=== PATIENT | female | born 1950 | race Caucasian/White ===

== ENCOUNTER 2018-07-07 22:01 | Emergency (ER) | payer OTHER ==
[2018-07-07] MEDS ORDERED: cloNIDine HCL 0.1 MG TAB PO ONE (22:30)
[2018-07-07 23:02] LABS: Basophils # (auto) 0 uL; Basophils % (auto) 0.3 % (0.0-2.0); Eosinophils # (auto) 0.1 uL; Eosinophils % (auto) 0.6 % (0.0-7.0); Hematocrit 41.4 % (36.0-46.0); Hemoglobin 13.9 g/dL (12.2-16.2); Lymphocytes # (auto) 2.1 uL; Lymphocytes % (auto) 16.9 % (10.0-50.0); Mean Corpuscular Hgb Conc. 33.7 g/dL (32.0-36.0); Monocytes # (auto) 0.6 uL; Monocytes % (auto) 4.9 % (0.0-12.0); Neutrophils # (auto) 9.5 uL; Neutrophils % (auto) 77.3 % (37.0-80.0); Platelet Count (auto) 246 10^3/uL (140-450); Red Cell Distribution Width 12.7 % (11.8-14.3); White Blood Cell 12.2 10^3/uL (4.4-10.8)
[2018-07-07 23:22] LABS: Albumin 3.9 g/dL (3.4-5.0); Calcium 8.3 mg/dL (8.5-10.1); Magnesium 2.4 mg/dL (1.6-2.6); Potassium 4.4 mmol/L (3.5-5.1)
[2018-07-07 23:27] LABS: BUN/Creatinine Ratio 16.9; Bilirubin, Total 0.7 mg/dL (0.2-1.0); Total Protein 7.2 g/dL (6.4-8.2)
[2018-07-07 23:28] LABS: INR 0.94 (0.9-1.15); Partial Thromboplastin Time 26.3 sec (23.78-33.04); Prothrombin Time 10.1 sec (9.27-12.13)
[2018-07-08] MEDS ORDERED: LORazepam 0.5 MG TAB PO ONE (02:00)
[2018-07-08] MEDS ORDERED: cloNIDine HCL 0.1 MG TAB PO ONE ×2 (05:15)
[2018-07-08] MEDS: LORazepam 0.5 MG TAB PO ONE ×2 (10:11→10:16)
[2018-07-08 11:43] VITALS: BP 106/73
== END 2018-07-08 12:01 | disposition short-term general hospital (02) ==
LOC: ER 22:03
DX: R07.89 Other chest pain (principal); R79.89 Other specified abnormal findings of blood chemistry; D72.829 Elevated white blood cell count, unspecified; I10 Essential (primary) hypertension; F41.9 Anxiety disorder, unspecified; R73.9 Hyperglycemia, unspecified; E78.5 Hyperlipidemia, unspecified; Z86.73 Personal history of transient ischemic attack (TIA), and cerebral infarction without residual deficits
CPT/HCPCS: 36415; 71046; 80053; 83735; 83880; 84443; 84484; 85025; 85379; 85610; 85730; 93005

== ENCOUNTER 2018-08-17 20:54 | Emergency (ER) | payer OTHER ==
[~2018-08-17] VITALS: Ht 162.6 cm; Wt 59.0 kg
[2018-08-17] MEDS ORDERED: cloNIDine HCL 0.1 MG TAB PO ONE (21:45)
[2018-08-17 21:54] LABS: Basophils # (auto) 0 uL; Basophils % (auto) 0.2 % (0.0-2.0); Eosinophils # (auto) 0.1 uL; Eosinophils % (auto) 0.8 % (0.0-7.0); Hematocrit 38.7 % (36.0-46.0); Hemoglobin 12.8 g/dL (12.2-16.2); Lymphocytes # (auto) 1.8 uL; Lymphocytes % (auto) 23.1 % (10.0-50.0); Mean Corpuscular Hemoglobin 30.7 pg (28.0-32.0); Mean Corpuscular Hgb Conc. 33.2 g/dL (32.0-36.0); Mean Corpuscular Volume 92.6 fL (80.0-100.0); Monocytes # (auto) 0.6 uL; Monocytes % (auto) 7.4 % (0.0-12.0); Neutrophils # (auto) 5.2 uL; Neutrophils % (auto) 68.5 % (37.0-80.0); Nucleated Red Blood Cells % 0.1 %; Platelet Count (auto) 178 10^3/uL (140-450); Red Blood Cells 4.18 10^6/uL (4.0-5.20); Red Cell Distribution Width 14.3 % (11.8-14.3); White Blood Cell 7.6 10^3/uL (4.4-10.8)
[2018-08-17 22:14] LABS: Albumin 3.8 g/dL (3.4-5.0); BUN/Creatinine Ratio 21.1; Calcium 8.4 mg/dL (8.5-10.1); Magnesium 2.3 mg/dL (1.6-2.6); Potassium 4.2 mmol/L (3.5-5.1)
[2018-08-17 22:19] LABS: Bilirubin, Total 0.5 mg/dL (0.2-1.0); Total Protein 7.4 g/dL (6.4-8.2)
[2018-08-17 22:20] LABS: INR 0.92 (0.9-1.15); Partial Thromboplastin Time 25.5 sec (23.78-33.04); Prothrombin Time 9.9 sec (9.27-12.13)
[2018-08-18] MEDS ORDERED: HYDROcodone-ACET 10/325MG TAB PO ONE ×2
[2018-08-18 01:33] VITALS: BP 166/88
== END 2018-08-18 02:00 | disposition left against medical advice (07) ==
LOC: ER 20:56
DX: I10 Essential (primary) hypertension (principal); Z53.21 Procedure and treatment not carried out due to patient leaving prior to being seen by health care provider
CPT/HCPCS: 36415; 71046; 80053; 83735; 83880; 84484; 85025; 85379; 85610; 85730; 93005

== ENCOUNTER 2021-01-18 12:47 | Emergency (ER) | payer OTHER ==
[~2021-01-18] VITALS: Ht 154.9 cm; Wt 59.0 kg
[2021-01-18] MEDS ORDERED: LIDOCAINE 1% HCL (LOCAL ANESTH.) INJ 20ML MDV ONE (14:31)
[2021-01-18] MEDS ORDERED: ACETAMINOPHEN 500 MG TAB PO ONE ×2 (14:32→14:45)
[2021-01-18] MEDS ORDERED: LIDOCAINE 1% HCL (LOCAL ANESTH.) INJ 20ML MDV ID ONE (14:45)
[2021-01-18 15:08] VITALS: BP 110/70
== END 2021-01-18 15:08 | disposition home or self-care (01) ==
LOC: EDSEX 12:47 → ER 12:47 → EDBD 12:47 → ER 15:08
DX: S01.01XA Laceration without foreign body of scalp, initial encounter (principal); I10 Essential (primary) hypertension; I25.10 Atherosclerotic heart disease of native coronary artery without angina pectoris; E78.5 Hyperlipidemia, unspecified; W01.198A Fall on same level from slipping, tripping and stumbling with subsequent striking against other object, initial encounter; Y93.89 Activity, other specified; Y92.89 Other specified places as the place of occurrence of the external cause; Y99.8 Other external cause status
CPT/HCPCS: 12002; 70450; 99284; J2001

== ENCOUNTER 2021-05-26 04:07 | Inpatient (IN) | payer OTHER ==
[~2021-05-26] VITALS: Ht 162.6 cm; Wt 56.9 kg
[2021-05-26] MEDS ORDERED: PANTOPRAZOLE 40 MG/10 ML VIAL INJ IV ONE (05:30)
[2021-05-26] MEDS ORDERED: SODIUM CHLORIDE 0.9% 1,000 ML IV ONE ×2 (05:30→07:45)
[2021-05-26] MEDS ORDERED: ONDANSETRON HCL 4 MG/2 ML VIAL IV ONE (05:30)
[2021-05-26 05:48] LABS: Basophils # (auto) 0 10 ^3/uL (0-0.2); Basophils % (auto) 0.2 % (0.0-2.0); Eosinophils # (auto) 0 10 ^3/uL (0-0.8); Hematocrit 37.7 % (36.0-46.0); Hemoglobin 12.6 g/dL (12.2-16.2); Lymphocytes % (auto) 9.7 % (10.0-50.0); Mean Corpuscular Hemoglobin 33.9 pg (28.0-32.0); Mean Corpuscular Hgb Conc. 33.4 g/dL (32.0-36.0); Mean Corpuscular Volume 101.4 fL (80.0-100.0); Monocytes # (auto) 0.3 10 ^3/uL (0-1.3); Neutrophils # (auto) 9.1 10 ^3/uL (1.6-8.6); Neutrophils % (auto) 87.1 % (37.0-80.0); Red Blood Cells 3.72 10^6/uL (4.0-5.20); Red Cell Distribution Width 14.9 % (11.8-14.3); White Blood Cell 10.4 10^3/uL (4.4-10.8)
[2021-05-26 06:01] LABS: Albumin 3.4 g/dL (3.4-5.0); Calcium 8.6 mg/dL (8.5-10.1); Magnesium 2.6 mg/dL (1.6-2.6); Potassium 4.2 mmol/L (3.5-5.1)
[2021-05-26 06:03] LABS: INR 0.96 (0.9-1.15); Partial Thromboplastin Time 22.5 sec (23.6-33.0)
[2021-05-26 06:06] LABS: BUN/Creatinine Ratio 30.9; Bilirubin, Total 0.6 mg/dL (0.2-1.0)
[2021-05-26] MEDS ORDERED: MORPHINE SULFATE 4 MG/ML SYR/VIAL IV ONE (07:45)
[2021-05-26] MEDS ORDERED: SODIUM CHLORIDE 0.9% 500 ML IVB ONE (07:45)
[2021-05-26] MEDS ORDERED: METOCLOPRAMIDE HCL 5MG/ml INJ 2ml VIAL IV ONE (07:45)
[2021-05-26] MEDS ORDERED: IOHEXOL 300 MG/ML 100ML BOTTLE IJ ONE (08:01)
[2021-05-26] MEDS ORDERED: PANTOPRAZOLE 40mg/50ML NS AE 50 ML IV ONE (10:45)
[2021-05-26] MEDS ORDERED: NITROGLYCERIN 0.4 MG SL TAB SL PRN (12:45)
[2021-05-26] MEDS ORDERED: ONDANSETRON HCL 4 MG/2 ML VIAL IV PRN (12:45)
[2021-05-26] MEDS ORDERED: MORPHINE SULFATE INJECTION 2 MG/ML SYRG IV PRN (12:45)
[2021-05-26] MEDS: HYDROmorphone HCL 2 MG/ML VL IV PRN (13:40)
[2021-05-26] MEDS: SODIUM CHLORIDE 0.9% 1,000 ML IV SCH (14:06)
[2021-05-26] MEDS: PANTOPRAZOLE 40mg/50ML NS AE 50 ML IV SCH ×3 (15:39→23:06)
[2021-05-26 19:14] LABS: Hematocrit 29.2 % (36.0-46.0); Hemoglobin 9.7 g/dL (12.2-16.2)
[2021-05-26 20:00] VITALS: BP 139/59
[2021-05-26 22:00] VITALS: BP 136/69
[2021-05-27] MEDS ORDERED: ATO40T PO (00:44)
[2021-05-27] MEDS: SODIUM CHLORIDE 0.9% 1,000 ML IV SCH ×2 (03:41→15:25)
[2021-05-27] MEDS: PANTOPRAZOLE 40mg/50ML NS AE 50 ML IV SCH ×4 (04:47→18:45)
[2021-05-27 05:00] VITALS: BP 107/63
[2021-05-27 08:00] VITALS: BP 119/74
[2021-05-27] MEDS: HYDROmorphone HCL 2 MG/ML VL IV PRN ×2 (09:37→20:38)
[2021-05-27 12:00] VITALS: BP 125/70
[2021-05-27 16:00] VITALS: BP 125/82
[2021-05-27 22:00] VITALS: BP 141/77
[2021-05-27] MEDS ORDERED: IRBE300T43 PO (22:08)
[2021-05-28] MEDS: SODIUM CHLORIDE 0.9% 1,000 ML IV SCH ×2 (04:45→21:17)
[2021-05-28 05:00] VITALS: BP 129/78
[2021-05-28 06:42] LABS: Basophils # (auto) 0 10 ^3/uL (0-0.2); Eosinophils # (auto) 0 10 ^3/uL (0-0.8); Lymphocytes # (auto) 1.4 10 ^3/uL (0.4-5.4); Nucleated Red Blood Cells % 0.1 %; White Blood Cell 4.3 10^3/uL (4.4-10.8)
[2021-05-28 06:45] LABS: Basophils % (auto) 0.4 % (0.0-2.0); Eosinophils % (auto) 0.9 % (0.0-7.0); Hematocrit 30.1 % (36.0-46.0); Hemoglobin 10.2 g/dL (12.2-16.2); Lymphocytes % (auto) 31.4 % (10.0-50.0); Mean Corpuscular Hemoglobin 34.7 pg (28.0-32.0); Mean Corpuscular Hgb Conc. 33.8 g/dL (32.0-36.0); Mean Corpuscular Volume 102.7 fL (80.0-100.0); Monocytes # (auto) 0.3 10 ^3/uL (0-1.3); Monocytes % (auto) 7.8 % (0.0-12.0); Neutrophils # (auto) 2.6 10 ^3/uL (1.6-8.6); Neutrophils % (auto) 59.5 % (37.0-80.0); Red Blood Cells 2.93 10^6/uL (4.0-5.20)
[2021-05-28 09:00] VITALS: BP 136/86
[2021-05-28] MEDS ORDERED: PANTOPRAZOLE 40 MG TAB PO SCH (10:00)
[2021-05-28] MEDS: HYDROmorphone HCL 2 MG/ML VL IV PRN (10:19)
[2021-05-28 13:00] VITALS: BP 154/93
[2021-05-28 17:00] VITALS: BP 138/69
[2021-05-28 22:00] VITALS: BP 121/77
[2021-05-29 06:42] VITALS: BP 147/85
[2021-05-29 09:00] VITALS: BP 152/86
[2021-05-29] MEDS ORDERED: diphenhdrAMINE HCL 50 MG/1 ML VL ONE (09:16)
[2021-05-29] MEDS ORDERED: fentaNYL CITRATE 100 MCG/2 ML VL ONE (09:16)
[2021-05-29] MEDS: MIDAZOLAM HCL 5 MG/ML-1ML VIAL ONE ×2 (10:07→10:12)
[2021-05-29] MEDS: SODIUM CHLORIDE 0.9% 1,000 ML IV SCH (12:31)
[2021-05-29 13:00] VITALS: BP 148/89
[2021-05-29] MEDS: HYDROmorphone HCL 2 MG/ML VL IV PRN (13:27)
[2021-05-29 15:09] VITALS: BP 132/83
[2021-05-29] MEDS ORDERED: SUCRALFATE 1 GM/10 ML ORAL SUSP PO SCH (17:00)
[2021-05-29] MEDS ORDERED: PANTOPRAZOLE 40 MG TAB PO SCH (22:00)
== END 2021-05-29 15:50 | disposition home or self-care (01) | DRG 382 ==
LOC: EDBD 04:07 → ER 04:07 → TELE 12:38 → TELE-WESTW 21:49
PROVIDERS: ADMIT Internal Medicine; ATTEND Internal Medicine
PROC: 0DB68ZX Excision of Stomach, Via Natural or Artificial Opening Endoscopic, Diagnostic (ICD-10-PCS; principal; 2021-05-29 10:05)
DX: K22.11 Ulcer of esophagus with bleeding (principal); K29.81 Duodenitis with bleeding; K44.9 Diaphragmatic hernia without obstruction or gangrene; K29.71 Gastritis, unspecified, with bleeding; K76.0 Fatty (change of) liver, not elsewhere classified; D75.89 Other specified diseases of blood and blood-forming organs; I10 Essential (primary) hypertension; I25.10 Atherosclerotic heart disease of native coronary artery without angina pectoris; Z20.822 Contact with and (suspected) exposure to COVID-19; Z90.710 Acquired absence of both cervix and uterus; E78.5 Hyperlipidemia, unspecified
CPT/HCPCS: 36415; 43239; 71046; 74177; 80053; 83690; 83735; 83880; 84484; 85014; 85018; 85025; 85610; 85730; 86850; 86900; 86901; 87426; 93005; 96361; 96374; 96375; C9113; G0378; J2250; J2405

== ENCOUNTER 2021-08-03 12:21 | Emergency (ER) | payer OTHER ==
[~2021-08-03] VITALS: Ht 162.6 cm; Wt 47.6 kg
[~2021-08-03 12:21] MED LIST: ATO40T PO; IRBE300T43 PO
[2021-08-03] MEDS ORDERED: FAMOTIDINE (10MG/ML) 2ML VL IV ONE (12:45)
[2021-08-03] MEDS ORDERED: MORPHINE SULFATE 4 MG/ML SYR/VIAL IV ONE (12:45)
[2021-08-03] MEDS ORDERED: PANTOPRAZOLE 40 MG/10 ML VIAL INJ IV ONE (12:45)
[2021-08-03] MEDS ORDERED: ONDANSETRON HCL 4 MG/2 ML VIAL IV ONE (12:45)
[2021-08-03] MEDS ORDERED: SODIUM CHLORIDE 0.9% 1,000 ML IV ONE (12:45)
[2021-08-03 13:46] LABS: Basophils # (auto) 0.2 10 ^3/uL (0-0.2); Basophils % (auto) 1.8 % (0.0-2.0); Eosinophils # (auto) 0.1 10 ^3/uL (0-0.8); Eosinophils % (auto) 0.8 % (0.0-7.0); Hematocrit 38.2 % (36.0-46.0); Hemoglobin 12.5 g/dL (12.2-16.2); Lymphocytes # (auto) 0.8 10 ^3/uL (0.4-5.4); Lymphocytes % (auto) 8.2 % (10.0-50.0); Mean Corpuscular Hemoglobin 28.9 pg (28.0-32.0); Mean Corpuscular Hgb Conc. 32.6 g/dL (32.0-36.0); Mean Corpuscular Volume 88.5 fL (80.0-100.0); Monocytes # (auto) 0.5 10 ^3/uL (0-1.3); Monocytes % (auto) 4.8 % (0.0-12.0); Neutrophils # (auto) 8.5 10 ^3/uL (1.6-8.6); Neutrophils % (auto) 84.4 % (37.0-80.0); Red Blood Cells 4.32 10^6/uL (4.0-5.20); Red Cell Distribution Width 25.9 % (11.8-14.3); White Blood Cell 10.1 10^3/uL (4.4-10.8)
[2021-08-03 13:53] LABS: Albumin 3.3 g/dL (3.4-5.0); BUN/Creatinine Ratio 19.9; Calcium 8.9 mg/dL (8.5-10.1); Magnesium 2.6 mg/dL (1.6-2.6); Potassium 4.4 mmol/L (3.5-5.1)
[2021-08-03 13:54] LABS: Lactic Acid w/Reflex 2.3 mmol/L (0.4-2.0)
[2021-08-03 13:56] LABS: Bilirubin, Total 0.8 mg/dL (0.2-1.0)
[2021-08-03] MEDS ORDERED: HYDROcodone-ACET 5/325MG TAB PO ONE ×2 (15:15→19:45)
[2021-08-03] MEDS ORDERED: SODIUM CHLORIDE 0.9% 500 ML IV ONE ×2 (15:30→16:45)
[2021-08-03 18:49] LABS: Urine Bacteria NONE SEEN /hpf (None Seen); Urine Blood Negative /uL (Negative); Urine Hyaline Cast MOD /lpf (0 - 2); Urine Specific Gravity 1.017 (1.001-1.035); Urine WBC 1 /hpf (0 - 5)
[2021-08-03 21:30] VITALS: BP 103/51
== END 2021-08-03 21:43 | disposition home or self-care (01) ==
LOC: ER 12:21 → EDBD 12:21 → ER 21:43
DX: K20.90 Esophagitis, unspecified without bleeding (principal); N17.9 Acute kidney failure, unspecified; I10 Essential (primary) hypertension; Z90.49 Acquired absence of other specified parts of digestive tract; Z90.710 Acquired absence of both cervix and uterus
CPT/HCPCS: 36415; 74176; 80053; 81001; 83605; 83735; 85025; 93005; 96361; 96374; 96375; 99285; C9113; J2270; J2405; J3490; J7030

== ENCOUNTER 2022-09-05 16:09 | Emergency (ER) | payer OTHER ==
[~2022-09-05] VITALS: Ht 157.5 cm; Wt 52.3 kg
[2022-09-05] MEDS ORDERED: SODIUM CHLORIDE 0.9% 1,000 ML IV ONE ×3 (16:30→18:15)
[2022-09-05 17:22] LABS: Albumin 2.8 g/dL (3.4-5.0); BUN/Creatinine Ratio 27.7 (10.0-20.0); Calcium 8.6 mg/dL (8.5-10.1); Potassium 4.4 mmol/L (3.5-5.1)
[2022-09-05 17:24] LABS: Basophils # (auto) 0 10 ^3/uL (0-0.2); Basophils % (auto) 0.3 % (0.0-2.0); Bilirubin, Total 0.9 mg/dL (0.2-1.0); Eosinophils # (auto) 0 10 ^3/uL (0-0.8); Hematocrit 41.8 % (36.0-46.0); Hemoglobin 13.9 g/dL (12.2-16.2); Lymphocytes % (auto) 8.9 % (10.0-50.0); Mean Corpuscular Hemoglobin 34.5 pg (28.0-32.0); Mean Corpuscular Hgb Conc. 33.3 g/dL (32.0-36.0); Mean Corpuscular Volume 103.5 fL (80.0-100.0); Monocytes # (auto) 0.7 10 ^3/uL (0-1.3); Monocytes % (auto) 6.4 % (0.0-12.0); Neutrophils # (auto) 9.1 10 ^3/uL (1.6-8.6); Neutrophils % (auto) 84.4 % (37.0-80.0); Nucleated Red Blood Cells % 0.2 %; Red Blood Cells 4.04 10^6/uL (4.0-5.20); Red Cell Distribution Width 14.1 % (11.8-14.3); Total Protein 5.9 g/dL (6.4-8.2); White Blood Cell 10.7 10^3/uL (4.4-10.8)
[2022-09-05] MEDS ORDERED: PANTOPRAZOLE 40 MG/10 ML VIAL INJ IV ONE ×2 (18:00→18:15)
[2022-09-05] MEDS ORDERED: PANT40TA2 PO (18:23)
[2022-09-05] MEDS ORDERED: SUCR1SUS10 PO (18:23)
[2022-09-05 18:25] LABS: INR 0.94 (0.9-1.15); Partial Thromboplastin Time 23.4 sec (24.6-33.4)
[2022-09-05] MEDS ORDERED: SUCRALFATE 1 GM/10 ML ORAL SUSP PO ONE (19:30)
[2022-09-05] MEDS ORDERED: ACETAMINOPHEN 325 MG TAB PO SCH (19:30)
[2022-09-05 19:46] LABS: Eosinophils # (auto) 0 10 ^3/uL (0-0.8); Red Cell Distribution Width 14.1 % (11.8-14.3)
[2022-09-05 19:48] LABS: Basophils # (auto) 0 10 ^3/uL (0-0.2); Basophils % (auto) 0.2 % (0.0-2.0); Hematocrit 32.9 % (36.0-46.0); Lymphocytes % (auto) 12.1 % (10.0-50.0); Mean Corpuscular Hemoglobin 35.7 pg (28.0-32.0); Mean Corpuscular Hgb Conc. 33.5 g/dL (32.0-36.0); Mean Corpuscular Volume 106.6 fL (80.0-100.0); Monocytes # (auto) 0.7 10 ^3/uL (0-1.3); Monocytes % (auto) 8.1 % (0.0-12.0); Neutrophils # (auto) 6.5 10 ^3/uL (1.6-8.6); Neutrophils % (auto) 79.6 % (37.0-80.0); Nucleated Red Blood Cells % 0.1 %; Red Blood Cells 3.09 10^6/uL (4.0-5.20); White Blood Cell 8.2 10^3/uL (4.4-10.8)
[2022-09-05] MEDS ORDERED: SUCRALFATE 1 GM/10 ML ORAL SUSP PO SCH (22:00)
[2022-09-05 22:43] LABS: Basophils # (auto) 0 10 ^3/uL (0-0.2); Eosinophils # (auto) 0 10 ^3/uL (0-0.8); Hematocrit 33.2 % (36.0-46.0); Hemoglobin 11.1 g/dL (12.2-16.2); Monocytes # (auto) 0.7 10 ^3/uL (0-1.3); Monocytes % (auto) 8.3 % (0.0-12.0); Red Blood Cells 3.14 10^6/uL (4.0-5.20)
[2022-09-05 22:45] LABS: Basophils % (auto) 0.4 % (0.0-2.0); Lymphocytes # (auto) 1.5 10 ^3/uL (0.4-5.4); Lymphocytes % (auto) 17.3 % (10.0-50.0); Mean Corpuscular Hemoglobin 35.4 pg (28.0-32.0); Mean Corpuscular Hgb Conc. 33.5 g/dL (32.0-36.0); Mean Corpuscular Volume 105.8 fL (80.0-100.0); Neutrophils # (auto) 6.6 10 ^3/uL (1.6-8.6); Red Cell Distribution Width 14.1 % (11.8-14.3); White Blood Cell 8.9 10^3/uL (4.4-10.8)
[2022-09-06 00:15] VITALS: BP 170/90
== END 2022-09-06 00:32 | disposition home or self-care (01) ==
LOC: EDBD 16:09 → ER 16:09
DX: R07.89 Other chest pain (principal); K92.0 Hematemesis; R00.0 Tachycardia, unspecified; E78.5 Hyperlipidemia, unspecified; I10 Essential (primary) hypertension; Z90.49 Acquired absence of other specified parts of digestive tract; Z90.710 Acquired absence of both cervix and uterus; Z88.8 Allergy status to other drugs, medicaments and biological substances
CPT/HCPCS: 36415; 71045; 71250; 74176; 80053; 82271; 83605; 83735; 83880; 84484; 85025; 85610; 85730; 86850; 86900; 86901; 93005; 96361; 96374; 99285; C9113; J7030

== ENCOUNTER 2023-03-12 09:39 | Emergency (ER) | payer OTHER ==
[~2023-03-12] VITALS: Ht 165.1 cm; Wt 59.1 kg
[~2023-03-12 09:39] MED LIST changes: +PANT40TA2 PO; +SUCR1SUS26 PO
[2023-03-12 10:00] VITALS: PULSE 95; RESP 12; O2SAT 99
[2023-03-12 10:11] VITALS: TEMP 98
[2023-03-12 10:20] LABS: Basophils # (auto) 0 10 ^3/uL (0-0.2); Basophils % (auto) 0.3 % (0.0-2.0); Eosinophils # (auto) 0 10 ^3/uL (0-0.8); Hematocrit 45.5 % (36.0-46.0); Hemoglobin 14.8 g/dL (12.2-16.2); Lymphocytes # (auto) 1.1 10 ^3/uL (0.4-5.4); Lymphocytes % (auto) 8.9 % (10.0-50.0); Mean Corpuscular Hemoglobin 30.5 pg (28.0-32.0); Mean Corpuscular Hgb Conc. 32.6 g/dL (32.0-36.0); Mean Corpuscular Volume 93.6 fL (80.0-100.0); Monocytes # (auto) 0.4 10 ^3/uL (0-1.3); Monocytes % (auto) 3.2 % (0.0-12.0); Neutrophils % (auto) 87.6 % (37.0-80.0); Nucleated Red Blood Cells % 0.1 %; Red Blood Cells 4.86 10^6/uL (4.0-5.20); Red Cell Distribution Width 13.9 % (11.8-14.3); White Blood Cell 12.5 10^3/uL (4.4-10.8)
[2023-03-12 10:33] LABS: Alanine Aminotransferase 18 U/L (7-40); Albumin 4.2 g/dL (3.2-4.8); Alkaline Phosphatase 130 U/L (46-116); Anion Gap 12 (5-15); Aspartate Aminotransferase 24 U/L (13-40); BUN/Creatinine Ratio 12.3 (10.0-20.0); Blood Urea Nitrogen 10 mg/dL (9-23); Calcium 9.6 mg/dL (8.5-10.1); Carbon Dioxide 27 mmol/L (20-30); Chloride 101 mmol/L (98-107); Glucose 120 mg/dL (74-106); Potassium 3.8 mmol/L (3.5-5.1); Sodium 140 mmol/L (136-145)
[2023-03-12 10:34] LABS: Bilirubin, Total 0.9 mg/dL (0.2-1.0); Total Protein 6.7 g/dL (5.7-8.2)
[2023-03-12 10:59] LABS: Lipase 50 U/L (12-53)
[2023-03-12] MEDS ORDERED: MORPHINE SULFATE 4 MG/ML SYR/VIAL IV ONE (11:30)
[2023-03-12] MEDS ORDERED: SODIUM CHLORIDE 0.9% 1,000 ML IV ONE (11:30)
[2023-03-12] MEDS ORDERED: ONDANSETRON HCL 4 MG/2 ML VIAL IV ONE (11:30)
[2023-03-12 15:19] VITALS: BP 159/92; RESP 16; O2SAT 98
[2023-03-12 15:44] VITALS: PULSE 95
[2023-03-12] MEDS ORDERED: ZOFR4T PO (16:52)
== END 2023-03-12 16:08 | disposition home or self-care (01) ==
LOC: ER 09:39 → EDBD 09:39 → ER 15:50
DX: R10.13 Epigastric pain (principal); R11.2 Nausea with vomiting, unspecified; R19.7 Diarrhea, unspecified; I10 Essential (primary) hypertension; I25.10 Atherosclerotic heart disease of native coronary artery without angina pectoris; E78.5 Hyperlipidemia, unspecified; Z90.49 Acquired absence of other specified parts of digestive tract; Z90.710 Acquired absence of both cervix and uterus; Z90.89 Acquired absence of other organs; Z79.899 Other long term (current) drug therapy
CPT/HCPCS: 36415; 71045; 74177; 80053; 83690; 84484; 85025; 93005; 96361; 96374; 96375; 99285; J2270; J2405; J7030; Q9967

== ENCOUNTER 2023-04-16 23:40 | Emergency (ER) | payer OTHER ==
[~2023-04-16] VITALS: Ht 160 cm; Wt 54.4 kg
[~2023-04-16 23:40] MED LIST changes: +ZOFR4T PO
[2023-04-16 23:57] VITALS: BP 148/76; RESP 18; O2SAT 100
[2023-04-17 00:55] LABS: Basophils # (auto) 0 10 ^3/uL (0-0.2); Basophils % (auto) 0.4 % (0.0-2.0); Eosinophils # (auto) 0 10 ^3/uL (0-0.8); Hematocrit 46.3 % (36.0-46.0); Hemoglobin 15.2 g/dL (12.2-16.2); Lymphocytes # (auto) 1.7 10 ^3/uL (0.4-5.4); Lymphocytes % (auto) 13.9 % (10.0-50.0); Mean Corpuscular Hemoglobin 30.7 pg (28.0-32.0); Mean Corpuscular Hgb Conc. 32.8 g/dL (32.0-36.0); Mean Corpuscular Volume 93.5 fL (80.0-100.0); Monocytes # (auto) 0.5 10 ^3/uL (0-1.3); Monocytes % (auto) 4.2 % (0.0-12.0); Neutrophils # (auto) 9.8 10 ^3/uL (1.6-8.6); Neutrophils % (auto) 81.5 % (37.0-80.0); Red Blood Cells 4.95 10^6/uL (4.0-5.20); White Blood Cell 12.1 10^3/uL (4.4-10.8)
[2023-04-17 01:15] LABS: Alanine Aminotransferase 18 U/L (7-40); Albumin 4.3 g/dL (3.2-4.8); Alkaline Phosphatase 143 U/L (46-116); Anion Gap 16 (5-15); Aspartate Aminotransferase 27 U/L (13-40); BUN/Creatinine Ratio 8.8 (10.0-20.0); Blood Urea Nitrogen 7 mg/dL (9-23); Calcium 9.7 mg/dL (8.7-10.4); Carbon Dioxide 22 mmol/L (20-30); Chloride 100 mmol/L (98-107); Glucose 95 mg/dL (74-106); Lipase 51 U/L (12-53); Potassium 3.9 mmol/L (3.5-5.1); Sodium 138 mmol/L (136-145)
[2023-04-17 01:16] LABS: Bilirubin, Total 0.9 mg/dL (0.2-1.0); Total Protein 7.1 g/dL (5.7-8.2)
[2023-04-17 01:41] LABS: INR 0.94 (0.9-1.15); Prothrombin Time 9.9 sec (9.3-11.8)
[2023-04-17 02:08] VITALS: PULSE 119
== END 2023-04-17 01:52 | disposition left against medical advice (07) ==
LOC: EDBD 23:40 → ER 23:40
DX: K57.30 Diverticulosis of large intestine without perforation or abscess without bleeding (principal); R10.13 Epigastric pain; R11.2 Nausea with vomiting, unspecified; I10 Essential (primary) hypertension; I25.10 Atherosclerotic heart disease of native coronary artery without angina pectoris; K21.9 Gastro-esophageal reflux disease without esophagitis; E78.5 Hyperlipidemia, unspecified; Z98.890 Other specified postprocedural states; Z79.899 Other long term (current) drug therapy
CPT/HCPCS: 36415; 71045; 74176; 80053; 83690; 83735; 84484; 85025; 85610; 85730; 93005

== ENCOUNTER 2024-09-29 12:57 | Emergency (ER) | payer OTHER ==
[~2024-09-29] VITALS: Ht 162.6 cm; Wt 52.0 kg
[~2024-09-29 12:57] MED LIST changes: -ATO40T PO; +ATOR-507 PO
[2024-09-29 14:18] LABS: Basophils # (auto) 0 10 ^3/uL (0-0.2); Basophils % (auto) 0.4 % (0.0-2.0); Eosinophils # (auto) 0 10 ^3/uL (0-0.8); Eosinophils % (auto) 0.8 % (0.0-7.0); Hematocrit 43.7 % (36.0-46.0); Hemoglobin 14.4 g/dL (12.2-16.2); Lymphocytes # (auto) 1.8 10 ^3/uL (0.4-5.4); Lymphocytes % (auto) 30.4 % (10.0-50.0); Mean Corpuscular Hemoglobin 30.8 pg (28.0-32.0); Mean Corpuscular Hgb Conc. 32.9 g/dL (32.0-36.0); Mean Corpuscular Volume 93.6 fL (80.0-100.0); Monocytes # (auto) 0.3 10 ^3/uL (0-1.3); Monocytes % (auto) 5.6 % (0.0-12.0); Neutrophils # (auto) 3.8 10 ^3/uL (1.6-8.6); Neutrophils % (auto) 62.8 % (37.0-80.0); Nucleated Red Blood Cells % 0.3 %; Platelet Count (auto) 277 10^3/uL (140-450); Red Blood Cells 4.66 10^6/uL (4.0-5.20); Red Cell Distribution Width 14.1 % (11.8-14.3)
[2024-09-29 14:31] LABS: Chloride 104 mmol/L (98-107); Potassium 3.7 mmol/L (3.5-5.1); Sodium 139 mmol/L (136-145)
[2024-09-29 14:32] LABS: Anion Gap 10 (5-15); Carbon Dioxide 25 mmol/L (20-31)
[2024-09-29 14:33] LABS: Calcium 9.5 mg/dL (8.7-10.4)
[2024-09-29 14:38] LABS: BUN/Creatinine Ratio 11.8 (10.0-20.0); Blood Urea Nitrogen 10 mg/dL (9-23); Glucose 91 mg/dL (74-106)
--- NOTE | 2024-09-29 14:56 | DVH ---
EXAM: XY CHEST PORTABLE Indication: cp Technique: Single frontal view of the chest was obtained Comparison: XY CHEST PORTABLE on DOS: 04/17/23, XY CHEST XRAY 1 VIEW on DOS: 03/12/23, XY CHEST PORTABL E on DOS: 09/05/22 FINDINGS: Lines and Tubes: None Lungs: No focal consolidation. Pleura: No effusion. No pneumothorax. Cardiomediastinal contours: Unremarkable. Atherosclerotic vascular calcifications of the thoracic ao rta are noted. Bones: No acute osseous abnormality. IMPRESSION: No acute cardiopulmonary disease.
[2024-09-29] MEDS: ASPirin 325 MG TAB PO ONE (15:12)
[2024-09-29 15:14] VITALS: BP 147/92; PULSE 72; RESP 20; TEMP 98.4; O2SAT 96
--- NOTE | 2024-09-29 15:33 | ED.PDOC ---
History of Present Illness HPI Comments 74F presents to the Er w/ prior Hx of HTN, and Carotid Artery Sx which all may be associated to the c/c of CP which started yesterday. Pt reports she usually does not get cp. PMHx of High Lipids, GERD, CAD, Hiatal Hernia. SHx of , Partial Liver removal Sx, Cholecystectomy, Hysterectomy, and Tonsillectomy. Social Hx of occasional alcohol use, but denies tobacco and substance use. Denies chills, fever, N/V/D, SOB No other associated symptoms, modifiers, recent injuries or sick contacts present at this time. Chief Complaint: Chest Wall Injury Time Seen by MD: 14:10 Primary Care Provider: BRADEN Jung Notes: Nurses Notes, Medications, Allergies Allergies: Coded Allergies: NO KNOWN ALLERGIES (Unverified , 07/07/18) Home Meds Active Scripts Ondansetron Odt 4MG Tab (ZOFRAN PO) 4 Mg Tb, 4 MG PO Q6HPRN PRN for 30 Days, #120 TAB ODT TAB-DISSOLVE IN MOUTH, THEN SWALLOW Prov:MARLEN CANADA MD 03/12/23 Sucralfate (CARAFATE SUSP) 1 Gm/10 Ml Ss, 10 ML PO QID, #1200 ML 3 Refills Prov:MARLEN CANADA MD 09/05/22 Pantoprazole Sodium Sesquihydr (Protonix) 40 Mg Tab, 40 MG PO BID, #60 TAB 1 Refill Prov:MARLEN CANADA MD 09/05/22 Reported Medications Irbesartan (IRBESARTAN) 300 Mg Tab, 300 MG PO for 1 Day, TAB 05/27/21 Atorvastatin Calcium (Lipitor) 40 Mg Tab, 1 TAB PO DAILY, #30 TAB 5 Refills 05/27/21 Information Source: Patient Mode of Arrival: Wheelchair Severity: Moderate Timing: Hours Duration: Since onset, Hours Prehospital treatment: None Past Medical History PAST MEDICAL HISTORY: CAD, GERD, High Lipids, HTN Past Medical History (Other): Hiatal Hernia Surgical History: Cholecystectomy, , Hysterectomy, Tonsillectomy Surgical History (Other): Coartid Artyery Sx, Partial liver removal ELECTRIC POWERLINE EXAMINER History: No Pertinent ELECTRIC POWERLINE EXAMINER History Family History Family History: Reviewed,noncontributory to illness, Unknown Social History Smoker: Non-Smoker Alcohol: Occasionally Drugs: Denies Drug Use Lives In: Home Constitutional: denies: chills, diaphoresis, fatigue, fever, malaise, sweats, weakness, others EENTM: denies: blurred vision, double vision, ear bleeding, ear discharge, ear drainage, ear pain, ear ringing, eye pain, eye redness, hearing loss, mouth pain, mouth swelling, nasal discharge, nose bleeding, nose congestion, nose pain, photophobia, tearing, throat pain, throat swelling, voice changes, others Respiratory: denies: cough, hemoptysis, orthopnea, SOB at rest, shortness of breath, SOB with excertion, stridor, wheezing, others Cardiovascular: reports: chest pain; denies: dizzy spells, diaphoresis, Dyspnea on exertion, edema, irregular heart beat, left arm pain, lightheadedness, palpitations, PND, syncope, others Gastrointestinal: denies: abdomen distended, abdominal pain, blood streaked bowels, constipated, diarrhea, dysphagia, difficulty swallowing, hematemesis, melena, nausea, poor appetite, poor fluid intake, rectal bleeding, rectal pain, vomiting, others Genitourinary: denies: abnormal vagina bleeding, burning, dyspareunia, dysuria, flank pain, frequency, hematuria, incontinence, pain, , vagina discharge, urgency, others Neurological: denies: dizziness, fainting, headache, left sided numbness, left sided weakness, numbness, paresthesia, pre-existing deficit, right sided numbness, right sided weakness, seizure, speech problems, tingling, tremors, weakness, others Musculoskeletal: denies: back pain, gout, joint pain, joint swelling, muscle pain, muscle stiffness, neck pain, others Integumetry: denies: bruises, change in color, change in hair/nails, dryness, laceration, lesions, lumps, rash, wounds, others Allergic/Immunocompromised: denies: Difficulty Healing, Frequent Infections, Hives, Itching, others Hematologic/Lymphatic: denies: anemia, blood clots, easy bleeding, easy bruising, swollen glands, others Endocrine: denies: excessive hunger, excessive sweating, excessive thirst, excessive urination, flushing, intolerance to cold, intolerance to heat, unexplained weight gain, unexplained weight loss, others Psychiatric: denies: anxiety, bipolar disorder, depression, hopeless, panic disorder, schizophrenia, sleepless, suicidal, others All Other Systems: Reviewed and Negative Physical Exam General Appearance: No Apparent Distress, Normal HEENT: Normal ENT Inspection, Pharynx Normal, TMs Normal Neck: Full Range of Motion, Non-Tender, Normal, Normal Inspection Respiratory: Chest Non-Tender, Lungs Clear, No Accessory Muscle Use, No Respiratory Distress, Normal Breath Sounds Cardiovascular: No Edema, No JVD, No Murmur, No Gallop, Normal Peripheral Pulses, Regular Rate/Rhythm Breast Exam: Deferred Gastrointestinal: No Organomegaly, Non Tender, No Pulsatile Mass, Normal Bowel Sounds, Soft Genitalia: Deferred Pelvic: Deferred Rectal: Deferred Extremities: No calf tenderness, Normal capillary refill, Normal inspection, Normal range of motion, Non-tender, No pedal edema Musculoskeletal : Apperance: Normal Neurologic: Alert, umbrella supervisor II-XII nml as Tested, No Motor Deficits, Normal Affect, Normal Mood, No Sensory Deficits Cerebellar Function: Normal Reflexes: Normal Skin: Dry, Normal Color, Warm Lymphatic: No Adenopathy Was a procedure done? Was a procedure done?: No Differential Dx Considerations may include: ami, unstable angina, chest wall pain, pe, pneumonia, zoster X-Ray, Labs, Meds, VS Vital Signs Date Time Temp Pulse Resp B/P (MAP) Pulse Ox O2 Delivery O2 Flow Rate FiO2 09/29/24 15:14 72 20 96 Room Air* 0 21 09/29/24 15:14 98.4 72 20 147/92 (110) 96 98.4 09/29/24 13:05 81 09/29/24 13:00 97.1 73 18 180/99 (126) 98 97.1 165/98 (120) Lab Test 09/29/24 14:45 09/29/24 13:06 Range/Units Troponin I High Sensitivity 3 L 3 L </=34 ng/L White Blood Count 6.0 4.4-10.8 10^3/uL Red Blood Count 4.66 4.0-5.20 10^6/uL Hemoglobin 14.4 12.2-16.2 g/dL Hematocrit 43.7 36.0-46.0 % Mean Corpuscular Volume 93.6 80.0-100.0 fL Mean Corpuscular Hemoglobin 30.8 28.0-32.0 pg Mean Corpuscular Hemoglobin Concent 32.9 32.0-36.0 g/dL Red Cell Distribution Width 14.1 11.8-14.3 % Platelet Count 277 140-450 10^3/uL Mean Platelet Volume 7.3 6.9-10.8 fL Neutrophils (%) (Auto) 62.8 37.0-80.0 % Lymphocytes (%) (Auto) 30.4 10.0-50.0 % Monocytes (%) (Auto) 5.6 0.0-12.0 % Eosinophils (%) (Auto) 0.8 0.0-7.0 % Basophils (%) (Auto) 0.4 0.0-2.0 % Neutrophils # (Auto) 3.8 1.6-8.6 10 ^3/uL Lymphocytes # (Auto) 1.8 0.4-5.4 10 ^3/uL Monocytes # (Auto) 0.3 0-1.3 10 ^3/uL Eosinophils # (Auto) 0 0-0.8 10 ^3/uL Basophils # (Auto) 0 0-0.2 10 ^3/uL Nucleated Red Blood Cells 0.3 % Sodium Level 139 136-145 mmol/L Potassium Level 3.7 3.5-5.1 mmol/L Chloride Level 104 98-107 mmol/L Carbon Dioxide Level 25 20-31 mmol/L Anion Gap 10 5-15 Blood Urea Nitrogen 10 9-23 mg/dL Creatinine 0.85 0.550-1.02 mg/dL Glomerular Filtration Rate Calc 71 >90 mL/min BUN/Creatinine Ratio 11.8 10.0-20.0 Serum Glucose 91 74-106 mg/dL Calcium Level 9.5 8.7-10.4 mg/dL Current Medications Medications (Trade) Dose Ordered Sig/Loy Route Start Time Stop Time Status Last Admin Aspirin 325 mg ONCE ONCE PO 09/29/24 14:15 09/29/24 14:16 DC 09/29/24 15:12 Time of 1ST Reevaluation: 14:40 Reevaluation 1ST: Unchanged Patient Education/Counseling: Diagnosis, Treatment, Prognosis Family Education/Counseling: No Family Present Additional Information The following tests were ordered, and results were reviewed by me: EKG, LAB, XY, PHA Additional Information was gathered from interviewing the following independent historians: 04/17/23 I reviewed and agreed with the following test results read by other providers:XY I discussed treatment and results with medical personnel and: Patient Comprehensive systems review obtained and negative except for what is stated in the HPI. pt has a history of cad, hyperlipidemia, htn, and new onset chest pain. she will be admitted for unstable angina Departure 1 Departure Time of Disposition: 15:39 Impression: Primary Impression: Unstable angina Disposition: ADMITTED INPATIENT Admit to: Tele Condition: Serious Discharged With: Self, Spouse Critical Care Note Critical Care Time?: Yes (55 min-critical care time only) Critical care comment: Due to concerns for patients condition deteriorating, the care required my highest level of attention and readiness to intervene. I assessed the patient, reviewed the medical records, ordered the appropriate tests and treatments, then reassessed for results and responsiveness. I communicated with medical personnel and consultants and formulated a plan of care. Total critical care time excludes any procedures Stability Stability form required: No Heart Score Heart Score: Heart Score Response (Comments) Value History Moderate Suspicious 1 EKG Normal 0 Age >65 2 Risk Factors >3 or Hx ASHD 2 Troponin Normal limit 0 Total 5 I personally scribed for TEDDY DURAN MD ([email or web address]) on 09/29/24 at 15:33. E lectronically submitted by Pineda Hebert ([email or web address]). TEDDY DURAN MD Sep 29, 2024 15:33
[2024-09-29 19:37] LABS: Urine Bacteria None Seen /hpf (None Seen)
[2024-09-29 20:03] LABS: Urine Blood Negative /uL (Negative); Urine Clarity Clear (Clear); Urine Color Yellow (Yellow); Urine Mucus FEW (None Seen); Urine Protein, UAD TRACE (Negative); Urine Specific Gravity 1.033 (1.001-1.035); Urine Squamous Epithelial Cell FEW /hpf (<5); Urine Urobilinogen Normal (Negative); Urine WBC 5 /HPF (0-5); Urine pH 5.5 (5.0-9.0)
--- NOTE | 2024-09-30 19:11 | ECG ---
[facility] Test Date: 2024-09-29 Test Time: 13:05:47 Pat Name: LAURA TEJADA Department: ED Room: Gender: F Inspector Weights And Measures: GURJIT : 1950 Requested By: TEDDY DURAN Order Number: [id number] Reading MD: Won Dennis Measurements Intervals [place] Rate: 81 P: 73 GA: 119 QRS: 59 QRSD: 77 T: 21 QT: 371 QTc: 431 Interpretive Statements Sinus rhythm Borderline short GA interval Baseline wander in lead(s) V1 Electronically Signed On 10-03-2024 20:16:10 PDT by Won Dennis Please click the below link to view image of tracing.
== END 2024-09-29 21:04 | disposition left against medical advice (07) ==
LOC: ER 12:57
DX: I25.110 Atherosclerotic heart disease of native coronary artery with unstable angina pectoris (principal); E78.5 Hyperlipidemia, unspecified; K21.9 Gastro-esophageal reflux disease without esophagitis; I10 Essential (primary) hypertension; Z90.710 Acquired absence of both cervix and uterus; Z90.49 Acquired absence of other specified parts of digestive tract; Z79.899 Other long term (current) drug therapy; Z90.89 Acquired absence of other organs
CPT/HCPCS: 36415; 71045; 80048; 81001; 84484; 85025; 93005

== ENCOUNTER 2025-04-18 14:41 | Inpatient (IN) | payer OTHER ==
[~2025-04-18] VITALS: Ht 162.6 cm; Wt 48.0 kg
[2025-04-18] MEDS: DEXTROSE 50% SYRINGE 50 ML IV ONE (15:01)
[2025-04-18] MEDS: DEXTROSE (50%) 50ML SYRG IV ONE (15:01)
--- NOTE | 2025-04-18 15:03 | ED.PDOC ---
HPI Comments This is a 74 year old female AUSTEN presenting to the ED with chief complaint of chest pain. Patient reports that she has been experiencing 6/10 left sided chest pressure with associated loss of appetite and generalized weakness for the past 2 days. EMS relays that the patient had positive orthostatic blood pressure on scene, going from 122 to 79 systolically. Patient denies any SOB, dizziness, headache, N/V, or syncope. Chief Complaint: Chest Pain Time Seen by MD: 15:00 Primary Care Provider: BRADEN Jung Notes: Nurses Notes, Flask Cleaner Notes, Medications, Allergies Allergies: Coded Allergies: NO KNOWN ALLERGIES (Unverified , 07/07/18) Home Meds Active Scripts Ondansetron Odt 4MG Tab (ZOFRAN PO) 4 Mg Tb, 4 MG PO Q6HPRN PRN for 30 Days, #120 TAB ODT TAB-DISSOLVE IN MOUTH, THEN SWALLOW Prov:MARLEN CANADA MD 03/12/23 Sucralfate (CARAFATE SUSP) 1 Gm/10 Ml Ss, 10 ML PO QID, #1200 ML 3 Refills Prov:MARLEN CANADA MD 09/05/22 Pantoprazole Sodium Sesquihydr (Protonix) 40 Mg Tab, 40 MG PO BID, #60 TAB 1 Refill Prov:MARLEN CANADA MD 09/05/22 Reported Medications Irbesartan (IRBESARTAN) 300 Mg Tab, 300 MG PO for 1 Day, TAB 05/27/21 Atorvastatin Calcium (Lipitor) 40 Mg Tab, 1 TAB PO DAILY, #30 TAB 5 Refills 05/27/21 Information Source: Patient, Emergency Med Personnel Mode of Arrival: EMS Severity: Moderate Timing: Days Duration: Since onset Prehospital treatment: None Location: Chest (L) Radiation: No Radiation Quality: Pressure Onset: At Rest Past Medical History PAST MEDICAL HISTORY: CAD, GERD, High Lipids, HTN Surgical History: Cholecystectomy, , Hysterectomy, Tonsillectomy OFFICE AUDITOR History: No Pertinent OFFICE AUDITOR History Family History Family History: Reviewed,noncontributory to illness, Unknown Social History Smoker: Non-Smoker Alcohol: Occasionally Drugs: Denies Drug Use Lives In: Home Constitutional: reports: fatigue; denies: chills, diaphoresis, fever, malaise, sweats, weakness, others EENTM: denies: blurred vision, double vision, ear bleeding, ear discharge, ear drainage, ear pain, ear ringing, eye pain, eye redness, hearing loss, mouth pain, mouth swelling, nasal discharge, nose bleeding, nose congestion, nose pain, photophobia, tearing, throat pain, throat swelling, voice changes, others Respiratory: denies: cough, hemoptysis, orthopnea, SOB at rest, shortness of breath, SOB with excertion, stridor, wheezing, others Cardiovascular: reports: chest pain; denies: dizzy spells, diaphoresis, Dyspnea on exertion, edema, irregular heart beat, left arm pain, lightheadedness, palpitations, PND, syncope, others Gastrointestinal: reports: poor appetite; denies: abdomen distended, abdominal pain, blood streaked bowels, constipated, diarrhea, dysphagia, difficulty swallowing, hematemesis, melena, nausea, poor fluid intake, rectal bleeding, rectal pain, vomiting, others Genitourinary: denies: abnormal vagina bleeding, burning, dyspareunia, dysuria, flank pain, frequency, hematuria, incontinence, pain, , vagina discharge, urgency, others Neurological: denies: dizziness, fainting, headache, left sided numbness, left sided weakness, numbness, paresthesia, pre-existing deficit, right sided numbness, right sided weakness, seizure, speech problems, tingling, tremors, weakness, others Integumetry: denies: bruises, change in color, change in hair/nails, dryness, laceration, lesions, lumps, rash, wounds, others Allergic/Immunocompromised: denies: Difficulty Healing, Frequent Infections, Hives, Itching, others Hematologic/Lymphatic: denies: anemia, blood clots, easy bleeding, easy bruising, swollen glands, others Endocrine: denies: excessive hunger, excessive sweating, excessive thirst, excessive urination, flushing, intolerance to cold, intolerance to heat, unexplained weight gain, unexplained weight loss, others Psychiatric: denies: anxiety, bipolar disorder, depression, hopeless, panic disorder, schizophrenia, sleepless, suicidal, others All Other Systems: Reviewed and Negative Physical Exam General Appearance: No Apparent Distress, Other (Tired appearing) HEENT: Normal ENT Inspection, Pharynx Normal, TMs Normal Neck: Full Range of Motion, Non-Tender, Normal, Normal Inspection Respiratory: Chest Non-Tender, Lungs Clear, No Accessory Muscle Use, No Respiratory Distress, Normal Breath Sounds Cardiovascular: No Edema, No JVD, No Murmur, No Gallop, Normal Peripheral Pulse s, Regular Rate/Rhythm Breast Exam: Deferred Gastrointestinal: No Organomegaly, Non Tender, No Pulsatile Mass, Normal Bowel Sounds, Soft Genitalia: Deferred Pelvic: Deferred Rectal: Deferred Extremities: No calf tenderness, Normal capillary refill, Normal inspection, Normal range of motion, Non-tender, No pedal edema Musculoskeletal : Apperance: Normal Neurologic: Alert, park activities coordinator II-XII nml as Tested, No Motor Deficits, Normal Affect, Normal Mood, No Sensory Deficits Cerebellar Function: Normal Reflexes: Normal Skin: Dry, Normal Color, Warm Lymphatic: No Adenopathy Was a procedure done? Was a procedure done?: No X-Ray, Labs, Meds, VS Vital Signs Date Time Temp Pulse Resp B/P (MAP) Pulse Ox O2 Delivery O2 Flow Rate FiO2 04/18/25 14:43 102 Time of 1ST Reevaluation: 15:58 Reevaluation 1ST: Unchanged Patient Education/Counseling: Diagnosis, Treatment Family Education/Counseling: No Family Present SEPSIS Sepsis Screen Date sepsis recognized/suspect: Apr 18, 2025 Time Sepsis recognized/suspect: 1455 Recent Procedure: No On Antibiotic Therapy: No Respiratory Rate >20: No Heart Rate >90: Yes Temp<36 C (96.8 F) or >38.3 C: No SBP <90 or MAP <65 mmHG: No New Acute Mental Status Change: No Is the patient on CPAP, BIPAP,: No Physician Orders Electrocardigram (04/18/25 14:47) Electrocardigram (04/18/25 15:47) Electrocardigram (04/18/25 17:47) Vital Signs Date Time Temp Pulse Resp B/P (MAP) Pulse Ox O2 Delivery O2 Flow Rate FiO2 04/18/25 14:43 102 Critical Care Note Critical Care Time?: Yes (35 min-critical care time only) Stability Stability form required: No Heart Score Heart Score: Heart Score Response (Comments) Value History Highly Suspicious 2 EKG Normal 0 Age >65 2 Risk Factors >3 or Hx ASHD 2 Total 6 I personally scribed for SKIP COPELAND MD ([email or web address]) on 04/18/25 at 15:03. Electronically submitted by Wilber Montaño ([email or web address]). SKIP COPELAND MD Apr 18, 2025 15:03
[2025-04-18] MEDS: SODIUM CHLORIDE 0.9% 1,000 ML IV ONE ×2 (15:22→17:25)
[2025-04-18 15:28] VITALS: PULSE 94; RESP 18; O2SAT 99
[2025-04-18 16:30] LABS: Hematocrit 37.3 % (36.0-46.0); Hemoglobin 12.1 g/dL (12.2-16.2); Mean Corpuscular Hemoglobin 29.0 pg (28.0-32.0); Mean Corpuscular Volume 89.6 fL (80.0-100.0); Nucleated Red Blood Cells % 0.1 %
[2025-04-18 16:32] LABS: Potassium 4.7 mmol/L (3.5-5.1); Sodium 140 mmol/L (136-145)
[2025-04-18 16:33] LABS: Anion Gap 23 (5-15); Carbon Dioxide 21 mmol/L (20-31)
--- NOTE | 2025-04-18 16:34 | ECG ---
[facility] Test Date: 2025-04-18 Test Time: 15:45:35 Pat Name: LAURA TEJADA Department: [facility] ED Room: [address] [place] [address] Gender: F Histology Specialist: mariya : 1950 Requested By: SKIP COPELAND Order Number: [id number] Reading MD: Won Dennis Measurements Intervals [place] Rate: 93 P: 46 AL: 135 QRS: 56 QRSD: 77 T: -18 QT: 360 QTc: 448 Interpretive Statements Sinus rhythm Supraventricular bigeminy Probable left atrial enlargement Anterior infarct, old Baseline wander in lead(s) II Electronically Signed On 04-22-2025 15:40:09 PST by Won Dennis Please click the below link to view image of tracing.
[2025-04-18 16:39] LABS: BUN/Creatinine Ratio 21.3 (10.0-20.0); Blood Urea Nitrogen 17 mg/dL (9-23)
[2025-04-18 16:48] LABS: Calcium 7.4 mg/dL (8.7-10.4); Chloride 96 mmol/L (98-107); Glucose 217 mg/dL (74-106)
[2025-04-18 16:53] LABS: Lactic Acid w/Reflex 5.3 mmol/L (0.4-2.0)
[2025-04-18] MEDS: CEFEPIME 1GM/50ML 50 ML IV ONE (17:25)
--- NOTE | 2025-04-18 18:35 | DVH ---
CHEST RADIOGRAPH Indication: weakness Technique: Single frontal view of the chest was obtained Comparison: XY CHEST PORTABLE on DOS: 09/29/24, XY CHEST PORTABLE on DOS: 04/17/23, XY CHEST XRAY 1 VIEW on DOS: 03/12/23 FINDINGS: Lines and Tubes: None Lungs: No focal consolidation. Soft tissue fold over the left chest simulating a pneumothorax. If left-sided pneumothorax is of clinical concern recommend CT of the chest. Pleura: No effusion. No pneumothorax. Cardiomediastinal contours: Unremarkable Bones: No acute osseous abnormality. IMPRESSION: 1. Probable skin fold superimposed over left chest simulating a pneumothorax. If pneumothorax is of clinical concern recommend CT chest noncontrast.
--- NOTE | 2025-04-18 18:40 | DVH ---
CLINICAL HISTORY: weakness TECHNIQUE: Helical scanning was performed of the head from the skull base to the vertex. Multiplanar reconstructions were performed. This exam was performed according to our departmental dose optimization program. Up-to-date CT equipment and radiation dose reduction techniques are utilized as appropriate. CTDI 54 DLP 1080 COMPARISON: HEAD WITHOUT CONTRAST on DOS: 01/18/21 FINDINGS: There is no evidence for acute intracranial hemorrhage, acute ischemic changes, mass, mass effect, or extra-axial fluid collection. There is no hydrocephalus or midline shift. There is no effacement of the cerebral sulci and basal subarachnoid cisterns. The sutherland-white matter differentiation is well maintained. The imaged paranasal sinuses demonstrate mild left and minimal right maxillary sinus mucosal thickening. IMPRESSION: NO ACUTE INTRACRANIAL ABNORMALITY SEEN.
--- NOTE | 2025-04-18 20:29 | DVH ---
EXAM: CT CHEST WITHOUT CONTRAST History: Rule out pneumothorax Comparison Study: XY CHEST PORTABLE on DOS: 04/18/25, XY CHEST PORTABLE on DOS: 09/29/24, XY CHEST PORTABLE on DOS: 04/17/23, XY CHEST XRAY 1 VIEW on DOS: 03/12/23, XY CHEST PORTABLE on DOS: 09/05/22 TECHNIQUE: Multidetector CT of the chest was performed. Imaging was performed without IV contrast. Axial, coronal, and sagittal multiplanar reformats were obtained from the axial data set by the technologist. Radiation Dose : CTDI vol 5.6 mGy, DLP 205.12 mGy*cm. Findings: Evaluation is degraded by respiratory motion. Lungs /pleura: Minimal basilar atelectasis. Calcified granuloma in the left lower lobe. No definite pneumothorax. Trace bilateral subpleural lucency is unchanged. Heart/Great vessels: No cardiomegaly or pericardial effusion. Mild atherosclerotic calcifications of the aorta. Mediastinum: Diffuse esophageal wall thickening. Soft tissues/Bones: Unremarkable Upper abdomen: Nonspecific punctate hepatic and splenic calcification. Impression: 1. No definite pneumothorax. 2. Circumferential esophageal wall thickening, correlation with endoscopy is suggested. 3. Additional findings as detailed.
[2025-04-18] MEDS: ACETAMINOPHEN 500 MG TAB or CAP PO ONE (21:03)
[2025-04-19] MEDS ORDERED: MORPHINE SULFATE INJ 2 MG/ml SYRG IV PRN (00:45)
[2025-04-19] MEDS ORDERED: NITROGLYCERIN 0.4 MG SL TAB SL PRN (00:45)
--- NOTE | 2025-04-19 01:25 | DVHHP2 ---
Admitting Diagnosis: orthostatic hypotension History of Present Illness HPI 74 year old female with CAD, CHF, DM was brought to the ER complaining of 6/10 substernal chest pain general weakness, loss of appetite for the past 3 days. Per EMT, patient had positive orthostatic blood pressure on scene, with SBP dropping from 122 to 79. It was rechecked in the ER and was LYING DOWN: 137/78, SITTIN/76, STANDIN/58. Patient felt lightheaded. CT showed circumferential esophageal thickening and a calcified granuloma in the left lower lobe. Home Meds Active Scripts Ondansetron Odt 4MG Tab (ZOFRAN PO) 4 Mg Tb, 4 MG PO Q6HPRN PRN for 30 Days, #120 TAB ODT TAB-DISSOLVE IN MOUTH, THEN SWALLOW Prov:MARLEN CANADA MD 03/12/23 Sucralfate (CARAFATE SUSP) 1 Gm/10 Ml Ss, 10 ML PO QID, #1200 ML 3 Refills Prov:MARLEN CANADA MD 09/05/22 Pantoprazole Sodium Sesquihydr (Protonix) 40 Mg Tab, 40 MG PO BID, #60 TAB 1 Refill Prov:MARLEN CANADA MD 09/05/22 Reported Medications Irbesartan (IRBESARTAN) 300 Mg Tab, 300 MG PO for 1 Day, TAB 05/27/21 Atorvastatin Calcium (Lipitor) 40 Mg Tab, 1 TAB PO DAILY, #30 TAB 5 Refills 05/27/21 Past Medical History Cardiac: CAD, HTN GI: GERD Patient Family History: Patient reports no known family medical history. Review of Systems Constitutional: Weakness Cardiovascular: Chest Pain Gastrointestinal: Abnormal Appetite H&P Exam Vital Signs Vital Signs Date Time Temp Pulse Resp B/P (MAP) Pulse Ox O2 Delivery O2 Flow Rate FiO2 04/19/25 00:00 98 17 127/78 (94) 99 04/18/25 20:00 98.5 98.5 04/18/25 19:46 Room Air* 0 21 General Appeara: Thin Head Exam: Normal inspection Neck Exam: Normal inspection Eye Exam: bilateral eye PERRL, bilateral eye EOMI Pulmonary/Respiratory: Lungs clear Cardiovascular/Chest: Tachycardia Abdominal Pain Onset Location: Epigastric Neuro/Mental St: Alert, Oriented SEPSIS Sepsis Screen Date sepsis recognized/suspect: Apr 18, 2025 Time Sepsis recognized/suspect: 1456 Recent Procedure: No On Antibiotic Therapy: No Respiratory Rate >20: No Heart Rate >90: Yes Temp<36 C (96.8 F) or >38.3 C: No SBP <90 or MAP <65 mmHG: No New Acute Mental Status Change: No Is the patient on CPAP, BIPAP,: No Physician Orders Chest Without Contrast (04/18/25 19:24) Orthostatic Vital Signs (04/19/25 ) Admit (04/19/25 00:39) Prothrombin Time W/ Inr (04/19/25 06:00) Echo 2d Mode Cardiac Dop (04/19/25 00:39) Nitroglycerin Sublingual (Ntrostat Subli (04/19/25 00:45) Morphine Sulfate Injection (04/19/25 00:45) Stat Ekg For Chest Pain (04/19/25 00:39) Notify Md Of Changes From Base (04/19/25 00:39) Bean Sorter For 24 Hours (04/19/25 00:39) Emergency Dysrhythmia Protocol (04/19/25 00:39) Rhythm Strips Once Every Shift (04/19/25 00:39) Oxygen By Nasal Cannula (04/19/25 00:39) *[facility] (04/19/25 00:39) Sodium Chloride 0.9% (04/19/25 00:45) Ceftriaxone 1gm/50ml (Rocephin) (04/19/25 10:00) Vital Signs Date Time Temp Pulse Resp B/P (MAP) Pulse Ox O2 Delivery O2 Flow Rate FiO2 04/19/25 00:00 98 17 127/78 (94) 99 04/18/25 22:00 83 14 104/65 (78) 94 04/18/25 20:00 98.5 101 19 127/95 (106) 97 98.5 04/18/25 20:00 119 04/18/25 19:46 Room Air* 0 21 Laboratory Tests Test 04/18/25 15:47 04/18/25 18:08 Lactic Acid Level 5.3 mmol/L (0.4-2.0) *H 3.1 mmol/L (0.4-2.0) *H White Blood Count 10.3 10^3/uL (4.4-10.8) Medications Medications Dose Ordered Sig/Loy Route Start Time Stop Time Status Last Admin Dose Admin Acetaminophen 1,000 mg ONCE ONCE PO 04/18/25 21:00 04/18/25 21:01 DC 04/18/25 21:03 1,000 MG Cefepime HCl 50 ml @ 50 mls/hr ONCE ONCE IV 04/18/25 17:00 04/18/25 17:59 DC 04/18/25 17:25 50 MLS/HR Dextrose 50 ml ONCE ONCE IV 04/18/25 14:56 04/18/25 15:00 DC 04/18/25 15:01 50 ML Sodium Chloride 1,000 ml @ 1,000 mls/hr Q1H ONCE IV 04/18/25 15:15 04/18/25 16:14 DC 04/18/25 15:22 1,000 MLS/HR Sodium Chloride 1,000 ml @ 1,000 mls/hr Q1H ONCE IV 04/18/25 17:00 04/18/25 17:59 DC 04/18/25 17:25 1,000 MLS/HR Tramadol HCl 50 mg ONCE ONCE PO 04/18/25 22:45 04/18/25 22:46 DC 04/18/25 22:50 50 MG Labs/Xrays Labs Test 04/18/25 18:53 04/18/25 18:08 04/18/25 15:47 04/18/25 15:16 Range/Units Troponin I High Sensitivity 7 </=34 ng/L Lipase 28 12-53 U/L Lactic Acid Level 3.1 *H 0.4-2.0 mmol/L White Blood Count 10.3 4.4-10.8 10^3/uL Red Blood Count 4.16 4.0-5.20 10^6/uL Hemoglobin 12.1 L 12.2-16.2 g/dL Hematocrit 37.3 36.0-46.0 % Mean Corpuscular Volume 89.6 80.0-100.0 fL Mean Corpuscular Hemoglobin 29.0 28.0-32.0 pg Mean Corpuscular Hemoglobin Concent 32.4 32.0-36.0 g/dL Red Cell Distribution Width 14.4 H 11.8-14.3 % Platelet Count 333 140-450 10^3/uL Mean Platelet Volume 6.3 L 6.9-10.8 fL Neutrophils (%) (Auto) 87.4 H 37.0-80.0 % Lymphocytes (%) (Auto) 9.4 L 10.0-50.0 % Monocytes (%) (Auto) 3.0 0.0-12.0 % Eosinophils (%) (Auto) 0.1 0.0-7.0 % Basophils (%) (Auto) 0.1 0.0-2.0 % Neutrophils # (Auto) 9.0 H 1.6-8.6 10 ^3/uL Lymphocytes # (Auto) 1.0 0.4-5.4 10 ^3/uL Monocytes # (Auto) 0.3 0-1.3 10 ^3/uL Eosinophils # (Auto) 0 0-0.8 10 ^3/uL Basophils # (Auto) 0 0-0.2 10 ^3/uL Nucleated Red Blood Cells 0.1 % Sodium Level 140 136-145 mmol/L Potassium Level 4.7 3.5-5.1 mmol/L Chloride Level 96 L 98-107 mmol/L Carbon Dioxide Level 21 20-31 mmol/L Anion Gap 23 H 5-15 Blood Urea Nitrogen 17 9-23 mg/dL Creatinine 0.80 0.550-1.02 mg/dL Glomerular Filtration Rate Calc 77 >90 mL/min BUN/Creatinine Ratio 21.3 H 10.0-20.0 Serum Glucose 217 H 74-106 mg/dL Calcium Level 7.4 L 8.7-10.4 mg/dL POC Glucose 151 H 70-106 mg/dl Assessment/Plan Problem List: (1) Orthostatic hypotension (2) Chest pain (3) Generalized weakness (4) Esophageal thickening Plan NS IV, NPO, ECHO, Abx, GI consult Plan discussed with: Patient MARLA MORROW MD Apr 19, 2025 01:25
[2025-04-19] MEDS: SODIUM CHLORIDE 0.9% 1,000 ML IV ONE (01:29)
[2025-04-19] MEDS ORDERED: DEXTROSE (50%) 50ML SYRG IV PRN (01:30)
[2025-04-19] MEDS: ACCU-CHEK COMFORT CURVE STRIP VI SCH (06:40)
[2025-04-19] MEDS: InsuLIN REG 1unit/0.01ml Soln (100units/ml) SC SCH (06:40)
[2025-04-19 07:36] VITALS: PULSE 73; RESP 16; O2SAT 95
[2025-04-19 07:47] LABS: INR 1.01 (0.9-1.15); Prothrombin Time 10.7 sec (9.3-11.8)
[2025-04-19 08:00] VITALS: TEMP 98
[2025-04-19] MEDS: SODIUM CHLORIDE 0.9% 2,000 ML IV ONE (08:01)
[2025-04-19 11:00] VITALS: BP 137/87; PULSE 85; RESP 19; O2SAT 99
--- NOTE | 2025-04-19 11:46 | ECG ---
[facility] Test Date: 2025-04-18 Test Time: 14:43:57 Pat Name: LAURA TEJADA Department: [facility] ED Patient ID: [id number] Room: [address] [place] [address] Gender: F Bookkeeper Assistant: mariya : 1950 Requested By: SKIP COPELAND Order Number: [id number] Reading MD: Won Dennis Measurements Intervals [place] Rate: 102 P: 77 DC: 124 QRS: 70 QRSD: 65 T: 35 QT: 402 QTc: 524 Interpretive Statements Pacemaker spikes or artifacts Sinus tachycardia Probable left atrial enlargement Probable anteroseptal infarct, old Prolonged QT interval Electronically Signed On 04-22-2025 15:39:58 PST by Won Dennis Please click the below link to view image of tracing.
--- NOTE | 2025-04-19 16:35 | DVHDS2 ---
New Physician D'charge PN Admitting Diagnosis Admitting Diagnosis chest pain Discharge Diagnosis orthostatic hypotension, resolved esophagitis Operations or Procedures none Reason(s) For Hospitalization Surgery Hospital Course 74 F who comes to ER for chest pain. Her troponins were negative however she was noted to have orthostatic hypotension. SHe was admitted and started on IVF fluids, she received a total of 4L NS and orthostatic vitals were repeated and the patient was no longer orthostatic with BP remaining stable. She was a CT chest done which showed circumferential thickening of esophagus suggestive of esophagitis. She was diagnosed with this last time as well and will be prescribed PPI and carafate to take at home with outpt GI follow up. Her CBC was nml and chem panel also normal. Vital signs have improved after 4L NS and maintenance fluids and patient to be discharged home. [facility] to arrange for all oupt follow up. scripts for PPI and carafate sent to the patients pharmacy on file and she has been instructed to stay hydrated at home. Treatment Plan Discharge Condition of Discharge Good Disposition Home Discharge Instructions Diet: Cardiac 2g Na,low cholest Activity: No Restrictions, As Tolerated Medications: see med sheet Follow Up Care Follow Up/Referral: PCP Discharge Statement: "Patient was advised to return to the ER or call 911 if any headaches, dizziness, shortness of breath, chest pain, abdominal pain, bleeding, fevers, or worsening of medical condition. Patient was counseled about treatment plan, medications, possible side effects, patientverbalized understanding. All questions were answered to the best of my ability. This discharge took greater then 30 minutes in planning, reviewing documentation, counseling the patient, and discussing with other team members." MARLEN CANADA MD Apr 19, 2025 16:35
--- NOTE | 2025-04-20 00:45 | PRN ---
Misceleneous Note Note Note 04/20/25 00:42 Discussed with patient via phone positive blood culture result. She is advised to return to the ED OSIEL. She states she will get a ride in the morning. She is advised to call EMS for any concerning symptoms over night. RUN DATE: 04/19/25 PAGE 1 RUN TIME: 2497 [facility] [address] [place] [address] Kaelyn Snell M.D., Laboratory Food Manager PATIENT: LAURA TEJADA ACCT: [id number] LOC: OVERFLOW U: [id number] AGE/SX: 74/F ROOM: [address] [place] [address] RE04/19/[address]: MARLA MORROW MD : 1950 BED: A DIS: STATUS: ADM IN TLOC: -- SPEC #: [id number] SALVADOR: 04/18/25 STATUS: RES REQ #: [id number] RECD: 04/18/25 [facility] DR: SKIP COEPLAND MD SOURCE: BLOOD ENTR: 04/18/25-[address] [facility] [address]: VINCENT: ORDERED: BCULT Procedure Result Blood Culture Preliminary Report Positive Blood culture Aerobic bottle Time to detect: 24 Hr RESULT Gram Positive Cocci in clusters Called results to:YAMILA WALSH RN. at 04/19/25,1582 by [facility]. Verbal readback confirmed. RUN DATE: 04/19/25 PAGE 1 RUN TIME: 1617 [facility] [address] [place], [place] [address] Kaelyn Snell M.D., Laboratory Food Manager PATIENT: LAURA TEJADA ACCT: [id number] LOC: OVERFLOW U: [id number] AGE/SX: 74/F ROOM: [facility]-ERT RE04/19/[address]: MARLA MORROW MD : 1950 BED: A DIS: STATUS: ADM IN TLOC: SPEC #: [id number] SALVADOR: 04/18/25 STATUS: RES REQ #: [id number] RECD: 04/18/25 [facility] DR: SKIP COPELAND MD SOURCE: BLOOD ENTR: 04/18/[address]: SPDESC: ORDERED: BCULT Procedure Result Blood Culture Preliminary NO GROWTH AFTER 24 HOURS OF INCUBATION. NO GROWTH AFTER 24 HOURS OF INCUBATION. TENZIN TALAVERA MD Apr 20, 2025 00:45
== END 2025-04-19 14:16 | disposition home or self-care (01) | DRG 312 ==
LOC: EDBD 14:41 → ER 14:41 → OVERFLOW 04-19 00:39
PROVIDERS: ADMIT Internal Medicine; ATTEND Internal Medicine
DX: I95.1 Orthostatic hypotension (principal); I11.0 Hypertensive heart disease with heart failure; I50.9 Heart failure, unspecified; E11.9 Type 2 diabetes mellitus without complications; K21.00 Gastro-esophageal reflux disease with esophagitis, without bleeding; I25.10 Atherosclerotic heart disease of native coronary artery without angina pectoris; Z90.710 Acquired absence of both cervix and uterus; Z90.49 Acquired absence of other specified parts of digestive tract
CPT/HCPCS: 36415; 70450; 71045; 71250; 80048; 82962; 83605; 83690; 84484; 85025; 85610; 87040; 93005; 96361; 96365; 96367; 99291; G0378

== ENCOUNTER 2025-04-20 15:44 | Inpatient (IN) | payer MEDICARE, OTHER ==
[~2025-04-20] VITALS: Ht 157.5 cm; Wt 58.0 kg
[~2025-04-20 15:44] MED LIST changes: -IRBE300T43 PO
[2025-04-20 16:38] LABS: Hematocrit 37.4 % (36.0-46.0); Hemoglobin 12.3 g/dL (12.2-16.2); Mean Corpuscular Hemoglobin 29.2 pg (28.0-32.0); Mean Corpuscular Volume 88.6 fL (80.0-100.0); Nucleated Red Blood Cells % 0.1 %
[2025-04-20 16:59] LABS: Alanine Aminotransferase 17 U/L (7-40); Albumin 2.7 g/dL (3.2-4.8); Alkaline Phosphatase 170 U/L (46-116); Anion Gap 12 (5-15); BUN/Creatinine Ratio 14.0 (10.0-20.0); Bilirubin, Total 0.2 mg/dL (0.2-1.0); Blood Urea Nitrogen 7 mg/dL (9-23); Calcium 7.5 mg/dL (8.7-10.4); Carbon Dioxide 26 mmol/L (20-31); Chloride 103 mmol/L (98-107); Glucose 109 mg/dL (74-106); Magnesium 1.6 mg/dL (1.6-2.6); Potassium 3.4 mmol/L (3.5-5.1); Sodium 141 mmol/L (136-145); Total Protein 5.0 g/dL (5.7-8.2)
--- NOTE | 2025-04-20 17:03 | DVH ---
CLINICAL HISTORY: weak TECHNIQUE: Single view of the chest was obtained. COMPARISON: CT CHEST WITHOUT CONTRAST on DOS: 04/18/25, XY CHEST PORTABLE on DOS: 04/18/25, XY CHEST PORTABLE on DOS: 09/29/24, XY CHEST PORTABLE on DOS: 04/17/23, XY CHEST XRAY 1 VIEW on DOS: 03/12/23 FINDINGS: The heart size and pulmonary vasculature are normal. The lungs are clear. IMPRESSION: NO ACUTE CARDIOPULMONARY PROCESS.
[2025-04-20] MEDS ORDERED: VANCOMYCIN PER PHARMACY 0 MG IV STA (20:28)
[2025-04-20] MEDS: SODIUM CHLORIDE 0.9% 1,000 ML IV ONE (20:30)
[2025-04-20] MEDS ORDERED: PIPERACILLIN-TAZOB 3.375GM 100 ML IV ONE (20:30)
--- NOTE | 2025-04-20 20:32 | ED.PDOC ---
History of Present Illness HPI Comments HPI: Poor Historian. 74-year-old female seen and evaluated in the hospital in the last 48 hours and was placed for admission but then the admitting team discharged her home. She was being evaluated for orthostatic hypotension. Patient received a phone call earlier today stating that she needs to return to the hospital because she has infection in her blood. Patient complains of generalized body aches and weakness Past Medical History: Past Surgical History: REVIEW OF SYSTEMS: CONSTITUTIONAL: Denies acute: fever, diaphoresis, chills, HEAD: Denies acute: headache, photophobia Eyes: Denies acute: Double vision, vision loss, eye pain, eye discharge. EARS: Denies acute: tinnitus, hearing loss, ear discharge, ear pain, THROAT: Denies acute: sore throat, swelling, difficulty swallowing , pain with swallowing, change in voice. NECK: Denies acute: neck pain, neck swelling, stiff neck. HEART: Denies acute : chest pain, palpitations, LUNGS: Denies acute: SOB, wheezing, cough, hemoptysis ABDOMEN: Denies acute: abdominal pain, Nausea, Vomiting, diarrhea, melena , hematemesis, hematochezia SKIN: Denies acute: rash, redness, lesions, itchiness. EXTREMITIES: Denies acute: calf pain, numbness, tingling, weakness, denies pain in extremity. Denies acute: Low back pain. Neuro: Denies acute: focal neurological deficit, motor or sensory focal neurological deficit, tremors, seizure like activity, confusion, dizziness, change in mental status, loss of bowel or bladder function, cauda equina like symptoms. : Denies acute: dysuria, hematuria, flank pain, increase in urinary frequency. PSYCH: Denies acute: hallucination, suicidal ideation, homicidal ideation. FEMALE: Denies acute: abnormal vaginal bleeding, foul odor, unusual discharge. PHYSICAL EXAM: General: ----moderate----acute distress, awake and alert. Head: normocephalic, atraumatic. No raccoon's eyes, no valles sign. Neck: supple, trachea is midline, no swelling. Throat: Normal phonation. Eyes:, no erythema, no purulent discharge, no proptosis, no icterus. Heart: regular rate, regular rhythm, no significant murmur appreciated. Lungs: no apparent respiratory distress, Able to speak in full sentences. No wheezing, no rhonchi, no crackles. No stridors Clear to auscultation bilaterally. Abdomen: non tender to palpation, non distended, soft, no guarding, no rebound, + bowel sounds. Neuro: Awake, Alert, oriented to name, self, situation, follows commands GCS=15. Speech is normal. Skin: no petechia, no purpura, no cyanosis, non-pale, not jaundice. Lower extremities: --no - Pitting edema no deformity, no focal swelling, no calf TTP. Makes eye contact. moves all four extremities. Face: no apparent facial droop. Ambulating in the ED with a cane ED COURSE: DISCLAIMER: This medical document was created using an electronic medical record system with voice recognition software and computerized dictation system. Although this document has been carefully reviewed, there might still be some phonetic and typographical errors. Occasional wrong-word or "sound-alike" substitutions may have occurred due to the inherent limitations of voice recognition software. These areas are purely typographical due to imperfections of the software programs and do not reflect any compromise in the patient's medical care. Please read the chart carefully and recognize, using context, where these substitutions have occurred. Chief Complaint: Abnormal LAB's Time Seen by MD: 15:49 Primary Care Provider: BRADEN Reviewed Notes: Allergies Allergies: Coded Allergies: NO KNOWN ALLERGIES (Unverified , 07/07/18) Home Meds Active Scripts Sulfamethoxazole W/Trimethopri (Bactrim Ds Tablet) 1 Tab Tb, 1 TAB PO BID for 7 Days, #14 TAB 0 Refills Prov:SUNG JIANG DO 04/23/25 Ondansetron Odt 4MG Tab (ZOFRAN PO) 4 Mg Tb, 4 MG PO Q6HPRN PRN for 30 Days, #120 TAB ODT TAB-DISSOLVE IN MOUTH, THEN SWALLOW Prov:MARLEN CANADA MD 03/12/23 Sucralfate (CARAFATE SUSP) 1 Gm/10 Ml Ss, 10 ML PO QID, #1200 ML 3 Refills Prov:MARLEN CANADA MD 09/05/22 Pantoprazole Sodium Sesquihydr (Protonix) 40 Mg Tab, 40 MG PO BID, #60 TAB 1 Refill Prov:MARLEN CANADA MD 09/05/22 Reported Medications Atorvastatin Calcium (Lipitor) 40 Mg Tab, 1 TAB PO DAILY, #30 TAB 5 Refills 05/27/21 Information Source: Patient, Relative Mode of Arrival: Ambulatory Past Medical History PAST MEDICAL HISTORY: CAD, GERD, High Lipids, HTN Surgical History: Cholecystectomy, , Hysterectomy, Tonsillectomy 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 Was a procedure done?: No Differential Dx Considerations may include: Includes but not limited to thyroid disease, encephalopathy, electrolyte abnormality, sepsis, infection, intracranial pathology, drug adverse effects, arrhythmia, kidney insufficiency, ACS, CVA, malignancy, anemia X-Ray, Labs, Meds, VS Vital Signs Date Time Temp Pulse Resp B/P (MAP) Pulse Ox O2 Delivery O2 Flow Rate FiO2 04/20/25 15:46 97.2 108 15 103/74 99 97.2 Lab Test 04/20/25 19:24 04/20/25 19:11 04/20/25 16:26 Range/Units Troponin I High Sensitivity 4 3 L </=34 ng/L Urine Color Yellow Yellow Urine Clarity Turbid H Clear Urine pH 6.0 5.0-9.0 Urine Specific [place] 1.032 1.001-1.035 Urine Protein 1+ H Negative Urine Ketones 1+ H Negative Urine Blood Negative Negative /uL Urine Nitrite Negative Negative Urine Bilirubin 1+ H Negative Urine Urobilinogen 8 H Negative mg/dL Urine Leukocyte Esterase 3+ Negative /uL Urine RBC 4 0 - 4 /hpf Urine Microscopic WBC 55 H 0-5 /HPF Urine Squamous Epithelial Cells Few <5 /hpf Urine Bacteria Few H None Seen /hpf Urine Mucus Few None Seen Urine Glucose Normal Normal mg/dL White Blood Count 8.1 4.4-10.8 10^3/uL Red Blood Count 4.23 4.0-5.20 10^6/uL Hemoglobin 12.3 12.2-16.2 g/dL Hematocrit 37.4 36.0-46.0 % Mean Corpuscular Volume 88.6 80.0-100.0 fL Mean Corpuscular Hemoglobin 29.2 28.0-32.0 pg Mean Corpuscular Hemoglobin Concent 32.9 32.0-36.0 g/dL Red Cell Distribution Width 14.7 H 11.8-14.3 % Platelet Count 326 140-450 10^3/uL Mean Platelet Volume 5.9 L 6.9-10.8 fL Neutrophils (%) (Auto) 68.9 37.0-80.0 % Lymphocytes (%) (Auto) 24.9 10.0-50.0 % Monocytes (%) (Auto) 4.7 0.0-12.0 % Eosinophils (%) (Auto) 1.2 0.0-7.0 % Basophils (%) (Auto) 0.3 0.0-2.0 % Neutrophils # (Auto) 5.6 1.6-8.6 10 ^3/uL Lymphocytes # (Auto) 2.0 0.4-5.4 10 ^3/uL Monocytes # (Auto) 0.4 0-1.3 10 ^3/uL Eosinophils # (Auto) 0.1 0-0.8 10 ^3/uL Basophils # (Auto) 0 0-0.2 10 ^3/uL Nucleated Red Blood Cells 0.1 % Sodium Level 141 136-145 mmol/L Potassium Level 3.4 L 3.5-5.1 mmol/L Chloride Level 103 98-107 mmol/L Carbon Dioxide Level 26 20-31 mmol/L Anion Gap 12 5-15 Blood Urea Nitrogen 7 L 9-23 mg/dL Creatinine 0.50 #L 0.550-1.02 mg/dL Glomerular Filtration Rate Calc 98 >90 mL/min BUN/Creatinine Ratio 14.0 10.0-20.0 Serum Glucose 109 H 74-106 mg/dL Lactic Acid Level 1.2 0.4-2.0 mmol/L Calcium Level 7.5 L 8.7-10.4 mg/dL Magnesium Level 1.6 1.6-2.6 mg/dL Total Bilirubin 0.2 0.2-1.0 mg/dL Aspartate Amino Transferase (AST) 34 13-40 U/L Alanine Aminotransferase (ALT) 17 7-40 U/L Alkaline Phosphatase 170 H 46-116 U/L C-Reactive Protein High Sensitivity 3.91 H <1.0 mg/dL B-Type Natriuretic Peptide 109.10 0-100 pg/mL Total Protein 5.0 L 5.7-8.2 g/dL Albumin 2.7 L 3.2-4.8 g/dL Microbiology Date/Time Source Procedure Growth Status 04/20/25 19:28 Blood Blood Culture - Final NO GROWTH AFTER 5 DAYS OF INCUBATION. Complete 04/20/25 19:24 Blood Blood Culture - Final NO GROWTH AFTER 5 DAYS OF INCUBATION. Complete 04/20/25 19:11 Voided Urine Urine Culture - Final Complete Time of 1ST Reevaluation: 20:37 (The case was discussed with the admitting team (HPI, physical exam, labs and diagnostic tests that were available at the time of disposition, ED course, treatment plan) on the phone. They agreed to admit the patient to their service and assume care of this patient from this point forward. --- jimena. She is familiar with this patient) Reevaluation 1ST: N/A Patient Education/Counseling: Diagnosis, Treatment Family Education/Counseling: Diagnosis, Treatment Comments MDM: patient presented with the above HPI.----positive blood culture--workup was initiated. patient was found with the above mentioned diagnosis. the following medications were ordered: please refer to order lists of meds and tests obtained by myself Dr. Frederick. Patient ED course and VS have been stabilized. Patient has been reassessed in the ED and remained in a stable condition. Pertinent incidental findings were discussed with the patient and/or family. Patient/family voices understanding and is agreeable with plan. Patient has been observed in the ED adequate length of time to insure improvement/stability. Escalation of care considered: Consideration of escalation to observation or admission Patient was given vancomycin and Zosyn and albumin replacement. Patient was given fluids. Patient was ADMITTED to the medicine team for further evaluation and treatment of their presentation. All the reports of any imaging studies that were ordered by myself were reviewed by myself. SEPSIS Sepsis Screen Date sepsis recognized/suspect: Apr 20, 2025 Time Sepsis recognized/suspect: 1549 Recent Procedure: No On Antibiotic Therapy: No Respiratory Rate >20: No Heart Rate >90: No Temp<36 C (96.8 F) or >38.3 C: No SBP <90 or MAP <65 mmHG: No New Acute Mental Status Change: No Is the patient on CPAP, BIPAP,: No Physician Orders Cook Helper Meat (04/20/25 ) Chest Portable (04/20/25 16:02) Electrocardigram (04/20/25 16:02) Vital Signs Date Time Temp Pulse Resp B/P (MAP) Pulse Ox O2 Delivery O2 Flow Rate FiO2 04/20/25 15:46 97.2 108 15 103/74 99 97.2 Laboratory Tests Test 04/20/25 16:26 Lactic Acid Level 1.2 mmol/L (0.4-2.0) White Blood Count 8.1 10^3/uL (4.4-10.8) Departure 1 Departure Time of Disposition: 20:37 Impression: Primary Impression: Positive blood culture Additional Impressions: Generalized weakness Body aches Hypoalbuminemia UTI (urinary tract infection) Disposition: ADMITTED INPATIENT Admit to: Tele Condition: Guarded e-Prescriptions Sulfamethoxazole W/Trimethopri (Bactrim Ds Tablet) 1 Tab Tb 1 TAB PO BID for 7 Days, #14 TAB 0 Refills Prov: SUNG JIANG DO 04/23/25 Discharged With: Self Critical Care Note Critical Care Time?: Yes (45 min-critical care time only) Heart Score Heart Score: Heart Score Response (Comments) Value History N/A 0 EKG N/A 0 Age N/A 0 Risk Factors N/A 0 Troponin N/A 0 Total 0 GILLIAN FREDERICK DO Apr 20, 2025 20:31
[2025-04-20] MEDS ORDERED: ALBUMIN 25% 100 ML IV ONE (20:45)
[2025-04-20 21:05] LABS: Urine Protein, UAD 1+ (Negative)
[2025-04-20] MEDS ORDERED: NITROGLYCERIN 0.4 MG SL TAB SL PRN (21:45)
[2025-04-20] MEDS ORDERED: MORPHINE SULFATE INJ 2 MG/ml SYRG IV PRN (21:45)
--- NOTE | 2025-04-20 22:10 | DVH ---
CLINICAL HISTORY: septicemia of unknown origin TECHNIQUE: CT of the abdomen and pelvis was performed without IV contrast. This exam was performed according to our departmental dose optimization program. Up-to-date CT equipment and radiation dose reduction techniques are utilized as appropriate. CTDI 5 DLP 244 COMPARISON: CT CT AB PEL WO CON-NO ORAL OR IV on DOS: 04/17/23, CT ABD PELVIS WO CONTRAST on DOS: 08/03/21, CT AB PEL WITH IV CON ONLY on DOS: 05/26/21 FINDINGS: Abdomen/Pelvis: The pancreas, adrenal glands, and kidneys are grossly unremarkable. The bladder is not well distended therefore not well evaluated. Punctate liver and splenic calcifications are most compatible with prior granulomatous disease. The gallbladder is absent. The uterus is absent. The abdominal aorta is normal in course and caliber. There are moderate to advanced atherosclerotic calcifications. There is no free intraperitoneal air or fluid. There is no enlarged abdominal pelvic lymph node. There is no bowel wall thickening or dilatation. The appendix is not seen. There is no focal inflammatory process in its expected location. There is mild nonspecific edema within the mesentery. There is mild sigmoid colon diverticulosis. Other: The imaged lower thorax demonstrates miniscule bilateral pleural effusions. There is minimal atelectasis at both lung bases. There is a small hiatal hernia. No acute osseous abnormality is evident. Impression: No acute noncontrast CT abnormality in the abdomen / pelvis. Mild sigmoid colon diverticulosis. Small hiatal hernia. Hysterectomy. Cholecystectomy.
[2025-04-20] MEDS: VANCOMYCIN 1GM/250ML KIT 250 ML IV ONE (22:30)
[2025-04-20] MEDS ORDERED: VANCOMYCIN PER PHARMACY 0 MG IV SCH (22:45)
[2025-04-20 23:13] VITALS: PULSE 84; RESP 18; O2SAT 98
[2025-04-20 23:29] LABS: COVID19 ANTIGEN SOFIA FIA NEGATIVE (NEGATIVE)
[2025-04-21] VITALS (10 sets, daily range): BP systolic 103–142; BP diastolic 62–89; PULSE 67–95; RESP 15–18; TEMP 97.3–99.2; O2SAT 97–100
[2025-04-21] MEDS: SOD CHL 0.45% 1,000 ML IV ONE (01:00)
[2025-04-21] MEDS: PIPERACILLIN-TAZOB 3.375GM 100 ML IV SCH (03:17)
[2025-04-21 06:57] LABS: Hematocrit 29.9 % (36.0-46.0); Hemoglobin 10.1 g/dL (12.2-16.2); Mean Corpuscular Hemoglobin 29.2 pg (28.0-32.0); Mean Corpuscular Volume 86.7 fL (80.0-100.0); Nucleated Red Blood Cells % 0.0 %
[2025-04-21 07:19] LABS: Alanine Aminotransferase 13 U/L (7-40); Anion Gap 8 (5-15); BUN/Creatinine Ratio 11.6 (10.0-20.0); Carbon Dioxide 25 mmol/L (20-31); Chloride 107 mmol/L (98-107); Glucose 83 mg/dL (74-106); Sodium 140 mmol/L (136-145)
[2025-04-21 07:25] LABS: Albumin 2.2 g/dL (3.2-4.8); Alkaline Phosphatase 129 U/L (46-116); Bilirubin, Total 0.3 mg/dL (0.2-1.0); Blood Urea Nitrogen 5 mg/dL (9-23); Calcium 7.0 mg/dL (8.7-10.4); Potassium 2.9 mmol/L (3.5-5.1); Total Protein 4.3 g/dL (5.7-8.2)
--- NOTE | 2025-04-21 09:28 | DVHHP2 ---
Admitting Diagnosis: Septicemia History of Present Illness HPI 74 y.o. female who was discharged the day before arrived to the ER after she had received a call informing her that her blood cultures were positive. The patient was admitted 3 days ago for orthostatic hypotension and subsequently discharge home. The patient stated she still has generalized body aches, weakness and chills. Home Meds Active Scripts Ondansetron Odt 4MG Tab (ZOFRAN PO) 4 Mg Tb, 4 MG PO Q6HPRN PRN for 30 Days, #120 TAB ODT TAB-DISSOLVE IN MOUTH, THEN SWALLOW Prov:MARLEN CANADA MD 03/12/23 Sucralfate (CARAFATE SUSP) 1 Gm/10 Ml Ss, 10 ML PO QID, #1200 ML 3 Refills Prov:MARLEN CANADA MD 09/05/22 Pantoprazole Sodium Sesquihydr (Protonix) 40 Mg Tab, 40 MG PO BID, #60 TAB 1 Refill Prov:MARLEN CANADA MD 09/05/22 Reported Medications Atorvastatin Calcium (Lipitor) 40 Mg Tab, 1 TAB PO DAILY, #30 TAB 5 Refills 05/27/21 Discontinued Reported Medications Irbesartan (IRBESARTAN) 300 Mg Tab, 300 MG PO for 1 Day, TAB 05/27/21 Past Medical History Cardiac: HTN Patient Family History: Patient reports no known family medical history. Review of Systems Constitutional: Chills, Malaise, Weakness Musculoskeletal: Muscle pain H&P Exam Vital Signs Vital Signs Date Time Temp Pulse Resp B/P (MAP) Pulse Ox O2 Delivery O2 Flow Rate FiO2 04/21/25 05:00 99.0 72 18 103/62 (76) 99 99.0 04/21/25 00:55 Room Air* 0 21 General Appeara: Mild distress Head Exam: Normal inspection Neck Exam: Normal inspection Eye Exam: bilateral eye PERRL, bilateral eye EOMI Pulmonary/Respiratory: Lungs clear Cardiovascular/Chest: Tachycardia Abdominal Exam: Soft Neuro/Mental St: Alert, Oriented SEPSIS Sepsis Screen Date sepsis recognized/suspect: Apr 20, 2025 Time Sepsis recognized/suspect: 1548 Recent Procedure: No On Antibiotic Therapy: No Respiratory Rate >20: No Heart Rate >90: No Temp<36 C (96.8 F) or >38.3 C: No SBP <90 or MAP <65 mmHG: No New Acute Mental Status Change: No Is the patient on CPAP, BIPAP,: No Physician Orders Regular Diet (04/21/25 Breakfast) Vital Signs Date Time Temp Pulse Resp B/P (MAP) Pulse Ox O2 Delivery O2 Flow Rate FiO2 04/21/25 05:00 99.0 72 18 103/62 (76) 99 99.0 Laboratory Tests Test 04/21/25 06:07 White Blood Count 5.8 10^3/uL (4.4-10.8) # Medications Medications Dose Ordered Sig/Loy Route Start Time Stop Time Status Last Admin Dose Admin Piperacillin Sod/ Tazobactam Sod 100 ml @ 25 mls/hr Q8H IV 04/21/25 04:00 04/21/25 03:17 25 MLS/HR Sodium Chloride 1,000 ml @ 100 mls/hr Q10H ONCE IV 04/20/25 21:45 04/21/25 07:44 DC 04/21/25 01:00 100 MLS/HR Vancomycin HCl 250 ml @ 250 mls/hr ONCE ONCE IV 04/20/25 22:30 04/20/25 23:29 DC 04/20/25 22:30 250 MLS/HR Labs/Xrays Labs Test 04/21/25 06:07 04/20/25 22:30 04/20/25 19:24 04/20/25 19:11 Range/Units White Blood Count 5.8 # 4.4-10.8 10^3/uL Red Blood Count 3.45 L 4.0-5.20 10^6/uL Hemoglobin 10.1 #L 12.2-16.2 g/dL Hematocrit 29.9 #L 36.0-46.0 % Mean Corpuscular Volume 86.7 80.0-100.0 fL Mean Corpuscular Hemoglobin 29.2 28.0-32.0 pg Mean Corpuscular Hemoglobin Concent 33.7 32.0-36.0 g/dL Red Cell Distribution Width 14.4 H 11.8-14.3 % Platelet Count 266 140-450 10^3/uL Mean Platelet Volume 6.1 L 6.9-10.8 fL Neutrophils (%) (Auto) 63.2 37.0-80.0 % Lymphocytes (%) (Auto) 25.0 10.0-50.0 % Monocytes (%) (Auto) 3.8 0.0-12.0 % Eosinophils (%) (Auto) 7.6 H 0.0-7.0 % Basophils (%) (Auto) 0.4 0.0-2.0 % Neutrophils # (Auto) 3.6 1.6-8.6 10 ^3/uL Lymphocytes # (Auto) 1.4 0.4-5.4 10 ^3/uL Monocytes # (Auto) 0.2 0-1.3 10 ^3/uL Eosinophils # (Auto) 0.4 0-0.8 10 ^3/uL Basophils # (Auto) 0 0-0.2 10 ^3/uL Nucleated Red Blood Cells 0.0 % Sodium Level 140 136-145 mmol/L Potassium Level 2.9 L 3.5-5.1 mmol/L Chloride Level 107 98-107 mmol/L Carbon Dioxide Level 25 20-31 mmol/L Anion Gap 8 5-15 Blood Urea Nitrogen 5 L 9-23 mg/dL Creatinine 0.43 L 0.550-1.02 mg/dL Glomerular Filtration Rate Calc 101 >90 mL/min BUN/Creatinine Ratio 11.6 10.0-20.0 Serum Glucose 83 74-106 mg/dL Calcium Level 7.0 L 8.7-10.4 mg/dL Total Bilirubin 0.3 0.2-1.0 mg/dL Aspartate Amino Transferase (AST) 21 13-40 U/L Alanine Aminotransferase (ALT) 13 7-40 U/L Alkaline Phosphatase 129 H 46-116 U/L Total Protein 4.3 L 5.7-8.2 g/dL Albumin 2.2 L 3.2-4.8 g/dL Influenza Type A Antigen Negative Negative Influenza Type B Antigen Negative Negative SARS-CoV-2 Antigen (Rapid) Negative NEGATIVE Troponin I High Sensitivity 4 </=34 ng/L Urine Color Yellow Yellow Urine Clarity Turbid H Clear Urine pH 6.0 5.0-9.0 Urine Specific [place] 1.032 1.001-1.035 Urine Protein 1+ H Negative Urine Ketones 1+ H Negative Urine Blood Negative Negative /uL Urine Nitrite Negative Negative Urine Bilirubin 1+ H Negative Urine Urobilinogen 8 H Negative mg/dL Urine Leukocyte Esterase 3+ Negative /uL Urine RBC 4 0 - 4 /hpf Urine Microscopic WBC 55 H 0-5 /HPF Urine Squamous Epithelial Cells Few <5 /hpf Urine Bacteria Few H None Seen /hpf Urine Mucus Few None Seen Urine Glucose Normal Normal mg/dL Test 04/20/25 16:26 Range/Units Lactic Acid Level 1.2 0.4-2.0 mmol/L Magnesium Level 1.6 1.6-2.6 mg/dL C-Reactive Protein High Sensitivity 3.91 H <1.0 mg/dL B-Type Natriuretic Peptide 109.10 0-100 pg/mL Assessment/Plan Problem List: (1) Septicemia (2) Generalized weakness Plan IV Abx, fall precautions Plan discussed with: Patient MARLA MORROW MD Apr 21, 2025 09:28
[2025-04-21] MEDS: VANCOMYCIN 1GM/250ML KIT 250 ML IV SCH (10:35)
[2025-04-21] MEDS ORDERED: ONDANSETRON HCL 4 MG/2 ML VIAL IV PRN (12:15)
[2025-04-21] MEDS: LORazepam 0.5 MG TAB PO PRN (13:01)
[2025-04-21] MEDS: HYDROcodone-ACET 5/325MG TAB PO PRN (16:36)
[2025-04-22] VITALS (7 sets, daily range): BP systolic 95–147; BP diastolic 52–79; PULSE 73–88; RESP 16–18; TEMP 98–99.2; O2SAT 95–100
--- NOTE | 2025-04-22 05:46 | DVHINCON2 ---
Date of service: Apr 21, 2025 Family History: Patient reports no known family medical history. Allergies: Coded Allergies: NO KNOWN ALLERGIES (Unverified , 07/07/18) Home Meds Active Scripts Ondansetron Odt 4MG Tab (ZOFRAN PO) 4 Mg Tb, 4 MG PO Q6HPRN PRN for 30 Days, #120 TAB ODT TAB-DISSOLVE IN MOUTH, THEN SWALLOW Prov:MARLEN CANADA MD 03/12/23 Sucralfate (CARAFATE SUSP) 1 Gm/10 Ml Ss, 10 ML PO QID, #1200 ML 3 Refills Prov:MARLEN CANADA MD 09/05/22 Pantoprazole Sodium Sesquihydr (Protonix) 40 Mg Tab, 40 MG PO BID, #60 TAB 1 Refill Prov:MARLEN CANADA MD 09/05/22 Reported Medications Atorvastatin Calcium (Lipitor) 40 Mg Tab, 1 TAB PO DAILY, #30 TAB 5 Refills 05/27/21 Discontinued Reported Medications Irbesartan (IRBESARTAN) 300 Mg Tab, 300 MG PO for 1 Day, TAB 05/27/21 Current Medications Current Medications Medications (Trade) Dose Ordered Sig/Loy Route PRN Reason Start Time Stop Time Status Last Admin Vancomycin HCl 250 ml @ 250 mls/hr Q8H IV 04/21/25 10:00 04/22/25 04:01 Ondansetron HCl (Zofran) 4 mg Q6HPRN PRN IV NAUSEA / VOMITING 04/21/25 12:15 Lorazepam (Ativan Tablet) 0.5 mg Q8HP PRN PO ANXIETY 04/21/25 12:15 04/21/25 13:01 Acetaminophen/ Hydrocodone Bitart ([place] 5/325MG Tab) 1 tab Q6HPRN PRN PO MODERATE PAIN (4-6 PAIN SCALE) 04/21/25 15:45 04/21/25 16:36 Acetaminophen/ Hydrocodone Bitart ([place] 10/325MG Tab) 1 tab Q6HP PRN PO SEVERE PAIN (7-10 PAIN SCALE) 04/21/25 15:45 Vital Signs Vital Signs Date Time Temp Pulse Resp B/P (MAP) Pulse Ox O2 Delivery O2 Flow Rate FiO2 04/22/25 01:00 98.2 76 16 121/69 (86) 97 98.2 04/21/25 20:00 Room Air* 0 21 Labs/Diagnostic Data Labs Test 04/21/25 06:07 04/20/25 22:30 04/20/25 19:24 04/20/25 19:11 Range/Units White Blood Count 5.8 # 4.4-10.8 10^3/uL Red Blood Count 3.45 L 4.0-5.20 10^6/uL Hemoglobin 10.1 #L 12.2-16.2 g/dL Hematocrit 29.9 #L 36.0-46.0 % Mean Corpuscular Volume 86.7 80.0-100.0 fL Mean Corpuscular Hemoglobin 29.2 28.0-32.0 pg Mean Corpuscular Hemoglobin Concent 33.7 32.0-36.0 g/dL Red Cell Distribution Width 14.4 H 11.8-14.3 % Platelet Count 266 140-450 10^3/uL Mean Platelet Volume 6.1 L 6.9-10.8 fL Neutrophils (%) (Auto) 63.2 37.0-80.0 % Lymphocytes (%) (Auto) 25.0 10.0-50.0 % Monocytes (%) (Auto) 3.8 0.0-12.0 % Eosinophils (%) (Auto) 7.6 H 0.0-7.0 % Basophils (%) (Auto) 0.4 0.0-2.0 % Neutrophils # (Auto) 3.6 1.6-8.6 10 ^3/uL Lymphocytes # (Auto) 1.4 0.4-5.4 10 ^3/uL Monocytes # (Auto) 0.2 0-1.3 10 ^3/uL Eosinophils # (Auto) 0.4 0-0.8 10 ^3/uL Basophils # (Auto) 0 0-0.2 10 ^3/uL Nucleated Red Blood Cells 0.0 % Sodium Level 140 136-145 mmol/L Potassium Level 2.9 L 3.5-5.1 mmol/L Chloride Level 107 98-107 mmol/L Carbon Dioxide Level 25 20-31 mmol/L Anion Gap 8 5-15 Blood Urea Nitrogen 5 L 9-23 mg/dL Creatinine 0.43 L 0.550-1.02 mg/dL Glomerular Filtration Rate Calc 101 >90 mL/min BUN/Creatinine Ratio 11.6 10.0-20.0 Serum Glucose 83 74-106 mg/dL Calcium Level 7.0 L 8.7-10.4 mg/dL Total Bilirubin 0.3 0.2-1.0 mg/dL Aspartate Amino Transferase (AST) 21 13-40 U/L Alanine Aminotransferase (ALT) 13 7-40 U/L Alkaline Phosphatase 129 H 46-116 U/L Total Protein 4.3 L 5.7-8.2 g/dL Albumin 2.2 L 3.2-4.8 g/dL Influenza Type A Antigen Negative Negative Influenza Type B Antigen Negative Negative SARS-CoV-2 Antigen (Rapid) Negative NEGATIVE Troponin I High Sensitivity 4 </=34 ng/L Urine Color Yellow Yellow Urine Clarity Turbid H Clear Urine pH 6.0 5.0-9.0 Urine Specific [place] 1.032 1.001-1.035 Urine Protein 1+ H Negative Urine Ketones 1+ H Negative Urine Blood Negative Negative /uL Urine Nitrite Negative Negative Urine Bilirubin 1+ H Negative Urine Urobilinogen 8 H Negative mg/dL Urine Leukocyte Esterase 3+ Negative /uL Urine RBC 4 0 - 4 /hpf Urine Microscopic WBC 55 H 0-5 /HPF Urine Squamous Epithelial Cells Few <5 /hpf Urine Bacteria Few H None Seen /hpf Urine Mucus Few None Seen Urine Glucose Normal Normal mg/dL Test 04/20/25 16:26 Range/Units Lactic Acid Level 1.2 0.4-2.0 mmol/L Magnesium Level 1.6 1.6-2.6 mg/dL C-Reactive Protein High Sensitivity 3.91 H <1.0 mg/dL B-Type Natriuretic Peptide 109.10 0-100 pg/mL Microbiology Date/Time Source Procedure Growth Status 04/20/25 19:28 Blood Blood Culture - Preliminary NO GROWTH AFTER 24 HOURS OF INCUBATION. Resulted 04/20/25 19:11 Voided Urine Urine Culture - Preliminary No growth Resulted Problems(with codes): (1) Septicemia (2) Positive blood culture (3) Body aches (4) UTI (urinary tract infection) (5) Esophageal thickening (6) Orthostatic hypotension Plan/Recommendation ASSESSMENT AND PLAN: ID Problem List: \-- Positive blood culture: gram-positive cocci in clusters (aerobic bottle 06/12), speciation pending \-- Altered mental status \-- Pyuria with positive leukocyte esterase (55 WBCs) \-- Circumferential esophageal wall thickening on CT chest (recommend endoscopic correlation per radiology) \-- Mild sigmoid diverticulosis (CT abdomen/pelvis) \-- Hypertension Assessment This is a 74-year-old female with a past medical history of hypertension who re- presented after outpatient notification of positive blood cultures. She now endorses body aches, chills, weakness, and nausea. On exam, she is in no acute distress with clear lungs, but has altered mental status. Initial blood cultures are positive for gram-positive cocci in clusters in 1 of 4 bottles (aerobic). Source is unclear; there are no open wounds and no history of prosthetic joints or pacemaker. Urinalysis shows positive leukocyte esterase with 55 WBCs; urine culture pending. COVID-19 and influenza A/B tests are negative. Inflammatory markers notable for CRP 3.91; prior lactic acidosis was notedrepeat lactate recommended to confirm resolution. CT chest shows no definite pneumothorax but demonstrates circumferential esophageal wall thickening; CXR without acute abnormality (apparent skin fold artifact). CT abdomen/pelvis shows no acute non- contrast abnormality, with mild sigmoid diverticulosis; history of hysterectomy and cholecystectomy. Basic labs: WBC 10.3, Hgb 12.1, Plt 333; Na 140, BUN 17, Cr 0.8; AST 34, ALT 17, alkaline phosphatase 170; lipase 28. Plan: \-- Continue vancomycin pending organism speciation and susceptibilities \-- Stop piperacillin-tazobactam (Zosyn) \-- Repeat blood cultures; follow to clearance \-- Obtain transthoracic echocardiogram to evaluate for endocarditis \-- Follow urine culture results; treat per sensitivities if consistent with infection \-- Check serum lactate to ensure resolution of prior lactic acidosis \-- Monitor mental status and vital signs; reassess need for further imaging or source evaluation as data return Isolation Precautions: standard Assessment and plan were discussed with the patient as written above where clinically feasible given mental status. Plan is subject to change pending incorporation of new incoming information/diagnostics. Updates may be added as addendum at the bottom (OR TOP) of this note. Thank you for the consult. ID will continue to follow. Please contact Infectious Diseases for any questions or concerns. HISTORY: The patient's chart and medications were reviewed in detail and the patient was seen and examined. History obtained from: Not specified in transcript. The patient is a 74-year-old female with hypertension who presented to the ED three days ago for orthostatic hypertension and was discharged. After discharge, blood cultures were reported positive; she returned to the ED and now reports body aches, chills, weakness, and nausea. She denies having open wounds. She has no history of prosthetic joints or pacemaker. COVID-19 and influenza A/B tests are negative. REVIEW OF SYSTEMS: A complete review of systems was not performed; only elements below were discussed in the transcript. -Constitutional: Positive for chills and weakness. -HEENT: Not discussed. -Respiratory: Not discussed. -Cardiovascular: Not discussed. -Gastrointestinal: Positive for nausea. -Genitourinary: Not discussed. -Musculoskeletal: Positive for body aches. -Skin: Not discussed. -Neurological: Positive for altered mental status. -Psychiatric: Not discussed. PAST MEDICAL HISTORY: -Hypertension PAST SURGICAL HISTORY: -History of hysterectomy (per CT abdomen/pelvis report) -History of cholecystectomy (per CT abdomen/pelvis report) HOME MEDICATIONS: -Ondansetron (dose/route/frequency not provided) -Sulfaclotide (spelling per transcript; medication name uncertain; dose/route/frequency not provided) -Pantoprazole (dose/route/frequency not provided) -Atorvastatin (dose/route/frequency not provided) ALLERGIES: -Not provided in transcript FAMILY HISTORY: -Not provided in transcript SOCIAL HISTORY: -Not provided in transcript OBJECTIVE: Vital Signs on Arrival: -Temperature: 99 F -Blood Pressure: 103/62 mmHg -Pulse: 72 bpm -Respiratory Rate: 18/min -SpO2: 99% on room air Most Recent Vital Signs: -Temperature: 98 F -Blood Pressure: 109/79 mmHg -Pulse: 94 bpm -Respiratory Rate: 18/min -SpO2: 95% on room air Admission Weight: Not provided in transcript. BMI: Not provided in transcript. Physical Exam: General: NAD Neck: Supple. No masses. HEENT: PERRL. Normal lids and conjunctiva. Moist mucous membranes. Oropharynx without lesions, exudates or excessive erythema. Normal appearance of the external aspects of the nose and ears. Heart: Regular rhythm, normal rate. No murmur. No lower extremity edema. Lungs: Normal respiratory effort. Clear to auscultation bilaterally. No wheezes. No crackles. Abdomen: Soft. Non-tender. Non-distended. No masses or abdominal hernia. Msk: No digital cyanosis. Normal strength and tone in all 4 limbs. Skin: Warm and dry, no rashes. Neuro: Altered mental status noted. No facial droop or slurred speech documented. Extra-ocular movements intact. Sensation intact to soft touch in all 4 limbs. Psych: Appropriate mood. Full affect when assessable. Oriented: Not fully oriented; altered mental status present. Lines: -Not provided in transcript DIAGNOSTIC STUDIES: Available diagnostic studies were reviewed personally. Significant relevant results and findings are outlined below or addressed in the Assessment and Plan above. -Blood cultures: Gram-positive cocci in clusters in aerobic bottle (06/12); p reliminary; speciation and susceptibilities pending. -Repeat blood cultures: Ordered/planned. -Urinalysis: Positive leukocyte esterase; WBCs 55. -Urine culture: Pending. -COVID-19 and Influenza A/B: Negative. -CBC: WBC 10.3 K/L; Hgb 12.1 g/dL; Plt 333 K/L. -BMP: Na 140 mmol/L; BUN 17 mg/dL; Creatinine 0.8 mg/dL. -LFTs: AST 34 U/L; ALT 17 U/L; Alkaline phosphatase 170 U/L. -CRP: 3.91 (elevated). -Lipase: 28 U/L. -Lactate: Prior lactic acidosis noted; current value not documentedrepeat recommended. PERTINENT IMAGING: -Chest X-ray: Apparent skin fold over left chest simulating pneumothorax; no pneumothorax suspected. No acute abnormality seen. -CT Chest: No definite pneumothorax. Circumferential esophageal wall thickening; correlation with endoscopy suggested. -CT Abdomen/Pelvis (non-contrast): No acute abnormality. Mild sigmoid colon diverticulosis. Postsurgical changes consistent with prior hysterectomy and cholecystectomy. -Head CT: Performed; specific findings not detailed in transcript. Plan discussed with: Patient SHAILESH LE MD Apr 22, 2025 05:46
--- NOTE | 2025-04-22 06:18 | DVHPN2 ---
Consult Progress Note Date Seen: Apr 22, 2025 Subjective Patient reports: Feels better (muscle ache pain improved) Objective vital signs Vital Sign Date Time Temp Pulse Resp B/P (MAP) Pulse Ox O2 Delivery O2 Flow Rate FiO2 04/22/25 01:00 98.2 76 16 121/69 (86) 97 98.2 04/21/25 20:00 Room Air* 0 21 Total Intake and Output 04/21/25 04/21/25 04/22/25 15:00 23:00 07:00 Intake Total 250 ml 1340 ml 400 ml Balance 250 ml 1340 ml 400 ml medications Current Medications Medications Dose Ordered Sig/Loy Route Start Time Stop Time Status Last Admin Dose Admin Nitroglycerin 0.4 mg Q5MINP PRN SL 04/20/25 21:45 Morphine Sulfate 2 mg Q30M PRN IV 04/20/25 21:45 Vancomycin HCl 0 ml @ 0 mls/hr PER PHARMACY IV 04/20/25 22:45 Vancomycin HCl 250 ml @ 250 mls/hr Q8H IV 04/21/25 10:00 04/22/25 04:01 250 MLS/HR Ondansetron HCl 4 mg Q6HPRN PRN IV 04/21/25 12:15 Lorazepam 0.5 mg Q8HP PRN PO 04/21/25 12:15 04/21/25 13:01 0.5 MG Acetaminophen/ Hydrocodone Bitart 1 tab Q6HPRN PRN PO 04/21/25 15:45 04/21/25 16:36 1 TAB Acetaminophen/ Hydrocodone Bitart 1 tab Q6HP PRN PO 04/21/25 15:45 laboratory and microbiology Laboratory Tests 04/21/25 06:07 Test 04/21/25 06:07 Range/Units Serum Glucose 83 74-106 mg/dL Problem List/Assessment/Plan Problems(with codes): (1) Esophageal thickening (2) Orthostatic hypotension (3) Septicemia (4) Positive blood culture (5) Body aches (6) Generalized weakness (7) UTI (urinary tract infection) Problem List/Assessment/Plan ASSESSMENT AND PLAN: ID Problem List: \-- Positive blood culture: gram-positive cocci in clusters (aerobic bottle 06/12), speciation pending \-- Altered mental status \-- Pyuria with positive leukocyte esterase (55 WBCs) \-- Circumferential esophageal wall thickening on CT chest (recommend endoscopic correlation per radiology) \-- Mild sigmoid diverticulosis (CT abdomen/pelvis) \-- Hypertension Assessment This is a 74-year-old female with a past medical history of hypertension who re- presented after outpatient notification of positive blood cultures. She now endorses body aches, chills, weakness, and nausea. On exam, she is in no acute distress with clear lungs, but has altered mental status. Initial blood cultures are positive for gram-positive cocci in clusters in 1 of 4 bottles (aerobic). Source is unclear; there are no open wounds and no history of prosthetic joints or pacemaker. Urinalysis shows positive leukocyte esterase with 55 WBCs; urine culture pending. COVID-19 and influenza A/B tests are negative. Inflammatory markers notable for CRP 3.91; prior lactic acidosis was notedrepeat lactate recommended to confirm resolution. CT chest shows no definite pneumothorax but demonstrates circumferential esophageal wall thickening; CXR without acute abnormality (apparent skin fold artifact). CT abdomen/pelvis shows no acute non- contrast abnormality, with mild sigmoid diverticulosis; history of hysterectomy and cholecystectomy. Basic labs: WBC 10.3, Hgb 12.1, Plt 333; Na 140, BUN 17, Cr 0.8; AST 34, ALT 17, alkaline phosphatase 170; lipase 28. Plan: \-- Continue vancomycin pending organism speciation and susceptibilities \-- Stop piperacillin-tazobactam (Zosyn) \-- Repeat blood cultures; follow to clearance \-- Obtain transthoracic echocardiogram to evaluate for endocarditis \-- Follow urine culture results; treat per sensitivities if consistent with infection \-- Check serum lactate to ensure resolution of prior lactic acidosis \-- Monitor mental status and vital signs; reassess need for further imaging or source evaluation as data return Isolation Precautions: standard Assessment and plan were discussed with the patient as written above where clinically feasible given mental status. Plan is subject to change pending incorporation of new incoming information/diagnostics. Updates may be added as addendum at the bottom (OR TOP) of this note. Thank you for the consult. ID will continue to follow. Please contact Infectious Diseases for any questions or concerns. Electronically signed by: Shailesh Pat, 04/22/2025 _ Physical Exam: General: NAD Neck: Supple. No masses. HEENT: PERRL. Normal lids and conjunctiva. Moist mucous membranes. Oropharynx without lesions, exudates or excessive erythema. Normal appearance of the external aspects of the nose and ears. Heart: Regular rhythm, normal rate. No murmur. No lower extremity edema. Lungs: Normal respiratory effort. Clear to auscultation bilaterally. No wheezes. No crackles. Abdomen: Soft. Non-tender. Non-distended. No masses or abdominal hernia. Msk: No digital cyanosis. Normal strength and tone in all 4 limbs. Skin: Warm and dry, no rashes. Neuro: Altered mental status noted. No facial droop or slurred speech documented. Extra-ocular movements intact. Sensation intact to soft touch in all 4 limbs. Psych: Appropriate mood. Full affect when assessable. Oriented: Not fully oriented; altered mental status present. Lines: -Not provided in transcript Plan discussed with: Patient SHAILESH PAT MD Apr 22, 2025 06:18
[2025-04-22] MEDS: POTASSIUM CHL 20 Meq TABLET PO SCH (10:17)
[2025-04-22 11:07] LABS: Hematocrit 31.1 % (36.0-46.0); Hemoglobin 10.3 g/dL (12.2-16.2); Mean Corpuscular Hemoglobin 28.9 pg (28.0-32.0); Mean Corpuscular Volume 87.7 fL (80.0-100.0); Nucleated Red Blood Cells % 0.1 %
[2025-04-22 11:41] LABS: Alanine Aminotransferase 13 U/L (7-40); Anion Gap 9 (5-15); BUN/Creatinine Ratio 13.0 (10.0-20.0); Carbon Dioxide 23 mmol/L (20-31); Chloride 107 mmol/L (98-107); Glucose 104 mg/dL (74-106); Sodium 139 mmol/L (136-145)
[2025-04-22 11:42] LABS: Albumin 2.1 g/dL (3.2-4.8); Alkaline Phosphatase 131 U/L (46-116); Bilirubin, Total < 0.2 mg/dL (0.2-1.0); Blood Urea Nitrogen 7 mg/dL (9-23); Calcium 6.7 mg/dL (8.7-10.4); Potassium 3.2 mmol/L (3.5-5.1); Total Protein 4.2 g/dL (5.7-8.2)
--- NOTE | 2025-04-22 11:57 | DVHPN2 ---
Progress Note - Dictate Date Seen: Apr 22, 2025 Medical Necessity Reason Pt with a Central, PICC or Fol: No Subjective Patient resting comfortably. vital signs Vital Sign Date Time Temp Pulse Resp B/P (MAP) Pulse Ox O2 Delivery O2 Flow Rate FiO2 04/22/25 09:00 98.0 77 16 147/52 (83) 95 98.0 04/22/25 07:37 Room Air* 0 21 Total Intake and Output 04/21/25 04/21/25 04/22/25 15:00 23:00 07:00 Intake Total 250 ml 1340 ml 400 ml Balance 250 ml 1340 ml 400 ml medications Current Medications Medications Dose Ordered Sig/Loy Route Start Time Stop Time Status Last Admin Dose Admin Nitroglycerin 0.4 mg Q5MINP PRN SL 04/20/25 21:45 Morphine Sulfate 2 mg Q30M PRN IV 04/20/25 21:45 Vancomycin HCl 0 ml @ 0 mls/hr PER PHARMACY IV 04/20/25 22:45 Vancomycin HCl 250 ml @ 250 mls/hr Q8H IV 04/21/25 10:00 04/22/25 09:43 250 MLS/HR Ondansetron HCl 4 mg Q6HPRN PRN IV 04/21/25 12:15 Lorazepam 0.5 mg Q8HP PRN PO 04/21/25 12:15 04/22/25 11:49 0.5 MG Acetaminophen/ Hydrocodone Bitart 1 tab Q6HPRN PRN PO 04/21/25 15:45 04/21/25 16:36 1 TAB Acetaminophen/ Hydrocodone Bitart 1 tab Q6HP PRN PO 04/21/25 15:45 Potassium Chloride 40 meq BID PO 04/22/25 10:00 04/22/25 23:00 04/22/25 10:17 40 MEQ objective General appearance: No acute distress Respiratory: Non-labored respirations Cardiovascular: Regular rate and rhythm, no murmurs. No edema Abdomen: Soft, nondistended, nontender, bowel sounds present MSK: Normal range of motion. Neuro: Alert, no neurological deficits Psych: Appropriate mood and affect. laboratory and microbiology Laboratory Tests 04/22/25 09:58 Test 04/22/25 09:58 Range/Units Serum Glucose 104 74-106 mg/dL Assessment/Plan 1. Bacteremia-Gram positive cocci pending speciation 2. Generalized weakness 3. Nausea -ID consulted, Dr. Pat -Recommending continuing vancomycin -Repeated blood cultures show no growth to date. Pending final blood culture results from previous admission. -Electrolytes repleted -Zosyn for nausea -[place] per MAR for pain -Daily CBC and BMP -Full Code Plan discussed with: Other SUNG JIANG DO Apr 22, 2025 11:57
--- NOTE | 2025-04-22 21:54 | DVHPN2 ---
Consult Progress Note Date Seen: Apr 22, 2025 Subjective Patient reports: No new complaints (mild fatigue, no muscles aches no dizziness) Objective vital signs Vital Sign Date Time Temp Pulse Resp B/P (MAP) Pulse Ox O2 Delivery O2 Flow Rate FiO2 04/22/25 21:00 99.0 88 16 95/54 (68) 98 99.0 04/22/25 07:37 Room Air* 0 21 Total Intake and Output 04/21/25 04/21/25 04/22/25 15:00 23:00 07:00 Intake Total 250 ml 1340 ml 400 ml Balance 250 ml 1340 ml 400 ml medications Current Medications Medications Dose Ordered Sig/Loy Route Start Time Stop Time Status Last Admin Dose Admin Nitroglycerin 0.4 mg Q5MINP PRN SL 04/20/25 21:45 Morphine Sulfate 2 mg Q30M PRN IV 04/20/25 21:45 Vancomycin HCl 0 ml @ 0 mls/hr PER PHARMACY IV 04/20/25 22:45 Ondansetron HCl 4 mg Q6HPRN PRN IV 04/21/25 12:15 Lorazepam 0.5 mg Q8HP PRN PO 04/21/25 12:15 04/22/25 11:49 0.5 MG Acetaminophen/ Hydrocodone Bitart 1 tab Q6HPRN PRN PO 04/21/25 15:45 04/21/25 16:36 1 TAB Acetaminophen/ Hydrocodone Bitart 1 tab Q6HP PRN PO 04/21/25 15:45 Potassium Chloride 40 meq BID PO 04/22/25 10:00 04/22/25 23:00 04/22/25 10:17 40 MEQ laboratory and microbiology Laboratory Tests 04/22/25 09:58 Test 04/22/25 09:58 Range/Units Serum Glucose 104 74-106 mg/dL Problem List/Assessment/Plan Problems(with codes): (1) Orthostatic hypotension (2) Septicemia (3) Positive blood culture (4) Body aches (5) Esophageal thickening (6) Hypoalbuminemia (7) Generalized weakness Problem List/Assessment/Plan ASSESSMENT AND PLAN: ID Problem List: \-- Positive blood culture: gram-positive cocci in clusters (aerobic bottle 06/12), speciation pending \-- Altered mental status \-- Pyuria with positive leukocyte esterase (55 WBCs) \-- Circumferential esophageal wall thickening on CT chest (recommend endoscopic correlation per radiology) \-- Mild sigmoid diverticulosis (CT abdomen/pelvis) \-- Hypertension Assessment This is a 74-year-old female with a past medical history of hypertension who re- presented after outpatient notification of positive blood cultures. She now endorses body aches, chills, weakness, and nausea. On exam, she is in no acute distress with clear lungs, but has altered mental status. Initial blood cultures are positive for gram-positive cocci in clusters in 1 of 4 bottles (aerobic). Source is unclear; there are no open wounds and no history of prosthetic joints or pacemaker. Urinalysis shows positive leukocyte esterase with 55 WBCs; urine culture pending. COVID-19 and influenza A/B tests are negative. Inflammatory markers notable for CRP 3.91; prior lactic acidosis was notedrepeat lactate recommended to confirm resolution. CT chest shows no definite pneumothorax but demonstrates circumferential esophageal wall thickening; CXR without acute abnormality (apparent skin fold artifact). CT abdomen/pelvis shows no acute non- contrast abnormality, with mild sigmoid diverticulosis; history of hysterectomy and cholecystectomy. Basic labs: WBC 10.3, Hgb 12.1, Plt 333; Na 140, BUN 17, Cr 0.8; AST 34, ALT 17, alkaline phosphatase 170; lipase 28. 04/22: lactate and crp have normalized Plan: \-- Continue vancomycin pending organism speciation and susceptibilities \-- Repeat blood cultures; follow to clearance \-- Obtain transthoracic echocardiogram to evaluate for endocarditis \-- Follow urine culture results; treat per sensitivities if consistent with infection \-- Monitor mental status and vital signs; reassess need for further imaging or source evaluation as data return Isolation Precautions: standard Assessment and plan were discussed with the patient as written above where clinically feasible given mental status. Plan is subject to change pending incorporation of new incoming information/diagnostics. Updates may be added as addendum at the bottom (OR TOP) of this note. Thank you for the consult. ID will continue to follow. Please contact Infectious Diseases for any questions or concerns. Electronically signed by: Shailesh Pat, 04/22/2025 _ Physical Exam: General: NAD Neck: Supple. No masses. HEENT: PERRL. Normal lids and conjunctiva. Moist mucous membranes. Oropharynx without lesions, exudates or excessive erythema. Normal appearance of the external aspects of the nose and ears. Heart: Regular rhythm, normal rate. No murmur. No lower extremity edema. Lungs: Normal respiratory effort. Clear to auscultation bilaterally. No wheezes. No crackles. Abdomen: Soft. Non-tender. Non-distended. No masses or abdominal hernia. Msk: No digital cyanosis. Normal strength and tone in all 4 limbs. Skin: Warm and dry, no rashes. Neuro: Altered mental status noted. No facial droop or slurred speech documented. Extra-ocular movements intact. Sensation intact to soft touch in all 4 limbs. Psych: Appropriate mood. Full affect when assessable. Oriented: Not fully oriented; altered mental status present. Lines: -Not provided in transcript Plan discussed with: Patient SHAILESH PAT MD Apr 22, 2025 21:54
[2025-04-23 01:00] VITALS: BP 140/99; PULSE 85; RESP 17; TEMP 98.6; O2SAT 96
[2025-04-23 05:00] VITALS: BP 135/86; PULSE 89; RESP 15; TEMP 97.7; O2SAT 96
[2025-04-23 08:00] VITALS: PULSE 66
[2025-04-23 09:00] VITALS: BP 118/79; PULSE 77; RESP 16; TEMP 97.9; O2SAT 95
[2025-04-23 10:06] LABS: Hematocrit 33.6 % (36.0-46.0); Hemoglobin 11.2 g/dL (12.2-16.2); Mean Corpuscular Hemoglobin 29.0 pg (28.0-32.0); Mean Corpuscular Volume 86.8 fL (80.0-100.0); Nucleated Red Blood Cells % 0.1 %
[2025-04-23 10:20] LABS: Alanine Aminotransferase 10 U/L (7-40); Alkaline Phosphatase 128 U/L (46-116); Anion Gap 6 (5-15); BUN/Creatinine Ratio 7.9 (10.0-20.0); Blood Urea Nitrogen 5 mg/dL (9-23); Calcium 7.6 mg/dL (8.7-10.4); Carbon Dioxide 30 mmol/L (20-31); Chloride 107 mmol/L (98-107); Glucose 85 mg/dL (74-106); Potassium 4.0 mmol/L (3.5-5.1); Sodium 143 mmol/L (136-145); Total Protein 4.6 g/dL (5.7-8.2)
[2025-04-23 10:26] LABS: Albumin 2.4 g/dL (3.2-4.8); Bilirubin, Total 0.2 mg/dL (0.2-1.0)
[2025-04-23] MEDS ORDERED: BACDST PO (12:08)
--- NOTE | 2025-04-23 12:15 | DVHDS2 ---
Discharge Summary Date of Admission Apr 20, 2025 at 21:37 Date of Discharge: Apr 23, 2025 Labs/Diagnostic Data: Laboratory Results Test 04/23/25 09:10 04/22/25 09:58 04/20/25 22:30 04/20/25 19:24 White Blood Count 5.2 10^3/uL (4.4-10.8) Red Blood Count 3.87 10^6/uL (4.0-5.20) Hemoglobin 11.2 g/dL (12.2-16.2) Hematocrit 33.6 % (36.0-46.0) Mean Corpuscular Volume 86.8 fL (80.0-100.0) Mean Corpuscular Hemoglobin 29.0 pg (28.0-32.0) Mean Corpuscular Hemoglobin Concent 33.4 g/dL (32.0-36.0) Red Cell Distribution Width 14.7 % (11.8-14.3) Platelet Count 284 10^3/uL (140-450) Mean Platelet Volume 5.9 fL (6.9-10.8) Neutrophils (%) (Auto) 44.6 % (37.0-80.0) Lymphocytes (%) (Auto) 45.7 % (10.0-50.0) Monocytes (%) (Auto) 6.9 % (0.0-12.0) Eosinophils (%) (Auto) 2.4 % (0.0-7.0) Basophils (%) (Auto) 0.4 % (0.0-2.0) Neutrophils # (Auto) 2.3 10 ^3/uL (1.6-8.6) Lymphocytes # (Auto) 2.4 10 ^3/uL (0.4-5.4) Monocytes # (Auto) 0.4 10 ^3/uL (0-1.3) Eosinophils # (Auto) 0.1 10 ^3/uL (0-0.8) Basophils # (Auto) 0 10 ^3/uL (0-0.2) Nucleated Red Blood Cells 0.1 % Sodium Level 143 mmol/L (136-145) Potassium Level 4.0 mmol/L (3.5-5.1) Chloride Level 107 mmol/L (98-107) Carbon Dioxide Level 30 mmol/L (20-31) Anion Gap 6 (5-15) Blood Urea Nitrogen 5 mg/dL (9-23) Creatinine 0.63 mg/dL (0.550-1.02) Glomerular Filtration Rate Calc 92 mL/min (>90) BUN/Creatinine Ratio 7.9 (10.0-20.0) Serum Glucose 85 mg/dL (74-106) Calcium Level 7.6 mg/dL (8.7-10.4) Total Bilirubin 0.2 mg/dL (0.2-1.0) Aspartate Amino Transferase (AST) 20 U/L (13-40) Alanine Aminotransferase (ALT) 10 U/L (7-40) Alkaline Phosphatase 128 U/L (46-116) Total Protein 4.6 g/dL (5.7-8.2) Albumin 2.4 g/dL (3.2-4.8) Random Vancomycin Level 20.6 ug/mL (5-10) Lactic Acid Level 1.1 mmol/L (0.4-2.0) C-Reactive Protein High Sensitivity 0.86 mg/dL (<1.0) Vancomycin Level Trough 38.5 ug/mL (5-10) Influenza Type A Antigen Negative (Negative) Influenza Type B Antigen Negative (Negative) SARS-CoV-2 Antigen (Rapid) Negative (NEGATIVE) Troponin I High Sensitivity 4 ng/L (</=34) Test 04/20/25 19:11 04/20/25 16:26 Urine Color Yellow (Yellow) Urine Clarity Turbid (Clear) Urine pH 6.0 (5.0-9.0) Urine Specific [place] 1.032 (1.001-1.035) Urine Protein 1+ (Negative) Urine Ketones 1+ (Negative) Urine Blood Negative /uL (Negative) Urine Nitrite Negative (Negative) Urine Bilirubin 1+ (Negative) Urine Urobilinogen 8 mg/dL (Negative) Urine Leukocyte Esterase 3+ /uL (Negative) Urine RBC 4 /hpf (0 - 4) Urine Microscopic WBC 55 /HPF (0-5) Urine Squamous Epithelial Cells Few /hpf (<5) Urine Bacteria Few /hpf (None Seen) Urine Mucus Few (None Seen) Urine Glucose Normal mg/dL (Normal) Magnesium Level 1.6 mg/dL (1.6-2.6) B-Type Natriuretic Peptide 109.10 pg/mL (0-100) Other Laboratory Tests 04/23/25 09:10 Brief Hx & Hospital Course: Patient is a 74-year-old female who presented due to positive blood culture. Patient was previously seen the day prior to admission and was noted to be hypotensive which resolved with some IV fluids. Ultimately her blood cultures grew micrococcus species. While we were awaiting for finalization of these cultures, patient was started on broad-spectrum antibiotics vancomycin and Zosyn. Repeat blood cultures were negative and showed no growth up to date. Infectious disease recommended patient be discharged on Bactrim double strength p.o. twice daily for 7 days. Patient's labs remained within normal limits with no leukocytosis noted on her CBC. Renal function remained within normal limits as well. No hypotension was noted during her hospitalization. Abdomen CT and pelvis without contrast did not reveal any acute abnormalities. Chest x-ray was done which did not reveal any acute cardiopulmonary process as well. Overall, patient was discharged in stable condition. She is to follow-up with infectious disease and 1 to 2 weeks. [facility] case management will arrange follow-up appointments. Condition at Discharge: Good Final Diagnosis/Problems List Bacteremia due to micrococcus Secondary Diagnosis: Anxiety Discharge Disposition: Home Discharge Instruct/Medications Diet: Regular Activity: No Restrictions, As Tolerated Follow Up/Referral: Follow up with infectious disease, Dr. Pat in 1-2 weeks. Medications: Take bactrim double strength twice a day for 7 days per infectious disease recommendation. Scheduled Atorvastatin Calcium (Lipitor), 1 TAB PO DAILY, (Reported) Pantoprazole Sodium Sesquihydr (Protonix), 40 MG PO BID Sucralfate (Carafate Susp), 10 ML PO QID Sulfamethoxazole W/Trimethopri (Bactrim Ds Tablet), 1 TAB PO BID Scheduled PRN Ondansetron Odt 4MG Tab (Zofran Po), 4 MG PO Q6HPRN PRN Discontinued Medications Irbesartan (Irbesartan), 300 MG PO, (Reported) Discharge Statement: "Patient was advised to return to the ER or call 911 if any headaches, dizziness, shortness of breath, chest pain, abdominal pain, bleeding, fevers, or worsening of medical condition. Patient was counseled about treatment plan, medications, possible side effects, patientverbalized understanding. All questions were answered to the best of my ability. This discharge took greater then 30 minutes in planning, reviewing documentation, counseling the patient, and discussing with other team members." ASSESSMENT ASSESSMENT Assessment Bacteremia due to micrococcus SUNG JIANG DO Apr 23, 2025 12:15
[2025-04-23 12:55] VITALS: BP 149/92; PULSE 69; RESP 18; TEMP 97.4; O2SAT 97
[2025-04-23] MEDS: HYDROcodone-ACET 10/325MG TAB PO PRN (13:30)
--- NOTE | 2025-04-23 15:25 | DVHSR ---
APPROVED REPORT EXAM: Two-dimensional and M-mode echocardiogram with Doppler and color Doppler. Blood Pressure: 121/69 mmHg INDICATION Evaluate for endocarditis RISK FACTORS Height: 5'2, Weight: 127 DIMENSIONS LVDd 4.4 (3.8-5.7cm) LA (2D) 2.9 (1.9-4.0cm) Aortic Root 2.5 (2.0-3.7cm) LVDs 2.7 (2.5-4.0cm) LA (MM) (1.9-4.0cm) Aortic Cusp Exc 1.6 (1.5-2.0cm) EF (%) 69.6 (55-70%) Rt. Atrium 3.1 (1.9-4.0cm) Asc. Aorta 2.8 cm IVSd 0.8 (0.7-1.1cm) RV (D) 2.9 (1.8-2.4cm) PWd 0.8 (0.7-1.1cm) Mitral Valve Mitral Mitral Stenosis E wave 0.68m/s MV Mean GR. mmHg A wave 0.89m/s MV Peak GR. mmHg E/A ratio 0.8 2D MVA cm2 DECEL Time 131ms PRESS 1/2 Time ms Aortic Valve Aortic Valve Aortic Stenosis V1 0.91m/s AO Mean GR. 3mmHg V2 1.17m/s AO Peak GR. 6mmHg LVOT Diameter 1.8 (1.8-2.4cm) Doppler TERRANCE 1.98cm2 Pulmonic Valve V2 0.64m/s Tricuspid Valve TR Velocity 2.36m/s RVSP 22mmHg Conclusion MILD LVH AND MILD LV DIASTOLIC DYSFUNCTION LV EF IS 65% HEAVILY CALCIFIED TIP OF ANTERIOR MITRAL LEAFLET NORMAL TV,PV AND AORTIC VALVE NO EFFUSION NORMAL RV FUNCTION
== END 2025-04-23 15:30 | disposition home or self-care (01) | DRG 872 ==
LOC: ER 15:44 → OVERFLOW 21:37 → TELE-WESTW 23:47
PROVIDERS: ADMIT Internal Medicine; ATTEND Internal Medicine
DX: A41.9 Sepsis, unspecified organism (principal); E88.09 Other disorders of plasma-protein metabolism, not elsewhere classified; N30.00 Acute cystitis without hematuria; I10 Essential (primary) hypertension; E78.5 Hyperlipidemia, unspecified; F41.9 Anxiety disorder, unspecified; Z20.822 Contact with and (suspected) exposure to COVID-19; I95.1 Orthostatic hypotension; I25.10 Atherosclerotic heart disease of native coronary artery without angina pectoris; K21.9 Gastro-esophageal reflux disease without esophagitis; K57.30 Diverticulosis of large intestine without perforation or abscess without bleeding; K22.9 Disease of esophagus, unspecified; Z90.710 Acquired absence of both cervix and uterus; Z90.49 Acquired absence of other specified parts of digestive tract
CPT/HCPCS: 36415; 71045; 74150; 80053; 80202; 81001; 83605; 83735; 83880; 84484; 85025; 86141; 87040; 87086; 87426; 87804; 93306; 96360; G0378; J2543